=== PATIENT | female | born 1985 | race Caucasian/White ===

== ENCOUNTER 2019-12-20 15:50 | Emergency (ER) | payer MEDICARE, MEDICAID, SELFPAY ==
--- NOTE | 2019-12-20 16:05 | HMH.EDABDPAI ---
ED Disposition Clinical Impression: Menstrual cramp Constipation Qualifiers: Constipation type: slow transit constipation Qualified Code(s): K59.01 - Slow transit constipation Disposition: Home, Self-Care Condition on Discharge: Good Instructions: DI for Dysmenorrhea, DI for Constipation Referrals: PCPJuliana [Primary Care Provider] - 3 days - Critical Care Critical Care Time: No Attestation: On , the high probability of a clinically significant, sudden or life threatening deterioration of the following system(s) required my full and direct attention, intervention and personal management. The time I documented below is in addition to time spent performing reported procedures but includes the following listed in this critical care notation. Medical Decision Making - Medical Records Medical records reviewed: Yes: I reviewed the patient's medical records. - Moses Inquiry Pt receiving controlled substance: No Vital Signs: 12/20/19 16:08 12/20/19 16:20 Temperature 98.2 F Temperature Source Oral Pulse Rate [Right Brachial] 59 L 57 L Respiratory Rate 18 Blood Pressure [Right Arm] 112/72 112/72 Blood Pressure Mean [Right Arm] 85 85 Blood Pressure Source [Right Arm] Automatic Cuff Automatic Cuff Blood Pressure Position [Right Arm] Sitting Sitting 02 Sat by Pulse Oximetry 97 98 Oxygen Delivery Method Room Air Room Air - Lab Data Lab results reviewed: Yes: I reviewed the patient's lab results. Lab Results 12/20/19 16:01: Urine Color Yellow, Urine Appearance Clear, Urine pH 6.5, Ur Specific [place] 1.025, Urine Protein Negative, Urine Glucose (UA) Negative, Urine Ketones Negative, Urine Blood 3+, Urine Nitrate Negative, Urine Bilirubin Negative, Urine Urobilinogen 1.0, Ur Leukocyte Esterase Negative 12/20/19 16:01: Urine HCG, Qual Negative Orders (Tests/Meds): ED MEDICATIONS Discontinued Medications Generic Name Dose Route Start Last Admin Trade Name Freq PRN Reason Stop Dose Admin Ibuprofen 600 mg 12/20/19 16:26 Ibuprofen 600 Mg Tablet PO 12/20/19 16:27 ONCE ONE ORDERS Category Date Time Status Urinalysis and Microscopic Stat Lab 12/20/19 16:01 Results Medical Decision Narrative: Patient with left lower quadrant pain in association with onset of her menstrual cycle most consistent with menstrual cramps. She is slightly tender in the left lower quadrant. This is negative and test negative, thus no ectopic . She has known ovarian cyst disease, but does not have excruciating abdominal pain that would make me suspect ovarian torsion. Patient also expresses having constipation over the last several weeks and I recommended MiraLAX daily until she is having toothpaste consistency stools. This is likely also contributing to her abdominal pain. She has good bowel sounds in all 4 quadrants, unlikely bowel obstruction. No fever, diarrhea that would suggest diverticulitis. On reevaluation at [facility], patient states that she is feeling better and wants to leave. I have discussed returning for any worsening symptoms. Expresses understanding of the plan and is agreeable. Abdominal Pain HPI - General Stated Complaint: Severe left side lower abdominal pain Time Seen by Provider: 12/20/19 16:05 Mode of Arrival: Ambulatory Source of Information: Patient Limitations: No Limitations - History of Present Illness HPI narrative: This is a 34-year-old morbidly obese female with a past medical history significant for hyperlipidemia, seizure disorder who presents to the emergency department for evaluation of left lower quadrant abdominal pain that started this morning in association with vaginal bleeding. Pain radiates to her left lower back. She thinks she just started her menstrual cycle and her last period was 1 month ago. She denies any dysuria. She had one episode of emesis just prior to the emergency department. She has been constipated for several weeks with only
[2019-12-20 16:08] VITALS: BP 112/72; PULSE 59; RESP 18; TEMP 36.8; O2SAT 97; BMI 43.0
[2019-12-20 16:08] LABS: Microscopic, Urine URINE MICROSCOPIC (MICROSCOPIC)
[2019-12-20 16:13] LABS: Appearance,Urine CLEAR (Clear); Bilirubin,Urine Negative (Negative); Blood, Urine 3+ (Negative); Color,Urine YELLOW (Yellow); Glucose,Urine (UA) Negative (Negative); Ketones,Urine Negative (Negative); Leukocyte Esterase,Urine Negative (Negative); Nitrate,Urine Negative (Negative); PH,Urine 6.5 (5.0-8.5); Protein,Urine Negative (Negative); Specific Gravity, Urine 1.025 (1.005-1.030)
[2019-12-20 16:20] VITALS: BP 112/72; PULSE 57; O2SAT 98
[2019-12-20 16:25] LABS: Urine Pregnancy, HCG Qual. Negative (Negative)
[2019-12-20 16:45] VITALS: BP 112/76; PULSE 60; RESP 17; TEMP 36.8; O2SAT 97
[2019-12-20 17:23] LABS: WBC,Urine Occasional #/hpf (0-3)
== END 2019-12-20 16:52 | disposition home or self-care (01) ==
PROVIDERS: Emergency Provider Emergency Medicine
DX: N94.4 Primary dysmenorrhea (principal); K59.01 Slow transit constipation; Z88.0 Allergy status to penicillin; F17.210 Nicotine dependence, cigarettes, uncomplicated; Z79.899 Other long term (current) drug therapy
CPT/HCPCS: 81001; 81025; 99282

== ENCOUNTER 2020-01-03 20:17 | Emergency (ER) | payer MEDICARE, SELFPAY ==
[2020-01-03 20:17] VITALS: BP 132/78; PULSE 56; RESP 18; TEMP 37.3; O2SAT 83; BMI 48.4
--- NOTE | 2020-01-03 20:18 | PC.NURSE ---
Seizure pads in place
[2020-01-03 20:30] VITALS: BP 136/74; PULSE 50; RESP 18; O2SAT 100
--- NOTE | 2020-01-03 20:57 | CT_ITS ---
PROCEDURE: CT HEAD/BRAIN WO CON CLINICAL INDICATION: seizure Head injury with headache/pain, contusion, abrasion or hematoma, loss of memory COMPARISON: CT HEADWO CT head/brain wo con from 09/06/2017 TECHNIQUE: Axial images obtained. All CT scans at the facility use one or more dose reduction, viz: automated exposure control, ma/kV adjustment per patient size (including targeted exams where dose is matched to indication, i.e. head), or iterative reconstruction technique. FINDINGS: No midline shift, mass effect, intracranial hemorrhage, hydrocephalus, or extra-axial fluid collection is evident. The calvarium has an unremarkable appearance. No mastoid effusion. No sinus air-fluid level. IMPRESSION: No acute intracranial finding Dictated by: Deandre Machado MD 01/04/2020 05:25 Deandre Machado MD in [place] 01/04/2020 05:25
--- NOTE | 2020-01-03 20:58 | CT_ITS ---
PROCEDURE: CT CERVICAL SPINE WO CON CLINICAL INDICATION: seizure Neck injury with pain, contusion/abrasion or hematoma, cervical sprain/strain the COMPARISON: No exams were available for comparison TECHNIQUE: Axial images obtained with sagittal and coronal reformats. All CT scans at the facility use one or more dose reduction, viz: automated exposure control, ma/kV adjustment per patient size (including targeted exams where dose is matched to indication, i.e. head), or iterative reconstruction technique. Axial spiral CT scanning performed of the cervical spine beginning at the base of the skull and continuing to the upper T-spine. 3-D multiplanar reconstruction with 3-D manipulation of volumetric data set in image rendering was completed by the radiologist and/or technologist with the supervision of the radiologist on independent workstation. FINDINGS: There is straightening/reversal of the normal lordosis which may be due to patient positioning or muscle spasm.. Normal alignment. No acute fracture or dislocation. There is mild multilevel cervical spondylosis with mild degenerative disc disease at C5-C6 and C6-C7. Incidental note is made of mild prominence of the thyroid gland. Lung apices are clear. Scattered small nodes are present in the neck IMPRESSION: 1. No acute fracture. 2. Mild cervical spondylosis with reversal cervical lordosis. Dictated by: Deandre Machado MD 01/04/2020 05:27 Deandre Machado MD in [place] 01/04/2020 05:27
--- NOTE | 2020-01-03 20:58 | XR_ITS ---
PROCEDURE: XR CHEST AP CLINICAL HISTORY: seizure Possible fall COMPARISON: No exams were available for comparison FINDINGS: The cardiomediastinal silhouette and pulmonary vascularity are within normal limits. The lungs are clear without infiltrates, suspicious nodules, or pleural effusions. No acute bony abnormalities. IMPRESSION: No acute findings. Dictated by: Deandre Machado MD 01/04/2020 05:23 Deandre Machado MD in [place] 01/04/2020 05:23
[2020-01-03 21:00] VITALS: BP 116/69; PULSE 55; RESP 18; O2SAT 100
[2020-01-03 21:22] LABS: Microscopic, Urine URINE MICROSCOPIC (MICROSCOPIC)
--- NOTE | 2020-01-03 21:27 | HMH.EDSEIZ ---
ED Disposition Clinical Impression: Generalized seizure Obesity Qualifiers: Obesity type: due to excess calories Obesity classification: adult class 3 (BMI >= 40) Serious obesity comorbidity presence: with serious comorbidity Body mass index: BMI 45.0-49.9 Qualified Code(s): E66.01 - Morbid (severe) obesity due to excess calories Bedbug bite Qualifiers: Encounter type: initial encounter Qualified Code(s): W57.XXXA - Bitten or stung by nonvenomous insect and other nonvenomous arthropods, initial encounter Disposition: Home, Self-Care Condition on Discharge: Good Instructions: DI for Seizure Disorder -- Adult Additional Instructions: call neuro in am Referrals: PCP,No [Primary Care Provider] - - Critical Care Critical Care Time: No Attestation: On 01/03/20, the high probability of a clinically significant, sudden or life threatening deterioration of the following system(s) required my full and direct attention, intervention and personal management. The time I documented below is in addition to time spent performing reported procedures but includes the following listed in this critical care notation. Medical Decision Making - Medical Records Medical records reviewed: Yes: I reviewed the patient's medical records. - Moses Inquiry Pt receiving controlled substance: No Vital Signs: 01/03/20 20:17 01/03/20 20:30 01/03/20 21:00 Temperature 99.1 F Temperature Source Rectal Pulse Rate [Left Radial] 56 L 50 L 55 L Respiratory Rate 18 18 18 Blood Pressure [Right Arm] 132/78 136/74 116/69 Blood Pressure Mean [Right Arm] 96 94 84 Blood Pressure Source [Right Arm] Automatic Cuff Blood Pressure Position [Right Arm] Sitting 02 Sat by Pulse Oximetry 83 L 100 100 Oxygen Delivery Method Room Air 01/03/20 21:31 Temperature Temperature Source Pulse Rate [Left Radial] 50 L Respiratory Rate 18 Blood Pressure [Right Arm] 123/70 Blood Pressure Mean [Right Arm] 87 Blood Pressure Source [Right Arm] Blood Pressure Position [Right Arm] 02 Sat by Pulse Oximetry 98 Oxygen Delivery Method - Lab Data Lab results reviewed: Yes: I reviewed the patient's lab results. Lab Results 01/03/20 20:55: Urine Color Yellow, Urine Appearance Clear, Urine pH 7.0, Ur Specific [place] 1.010, Urine Protein Negative, Urine Glucose (UA) Negative, Urine Ketones Negative, Urine Blood Negative, Urine Nitrate Negative, Urine Bilirubin Negative, Urine Urobilinogen 0.2, Ur Leukocyte Esterase Negative, Urine WBC 3-5, Urine Bacteria Trace 01/03/20 20:55: Urine HCG, Qual Negative 01/03/20 20:55: Urine Opiates Screen Negative, Urine Methadone Screen Negative, Ur Barbituates Screen Negative, Ur Phencyclidine Scrn Negative, Ur Amphetamines Screen Negative, U Benzodiazepines Scrn Negative, Urine Cocaine Screen Negative, U Marijuana (THC) Screen Negative 01/03/20 21:15: Lactate 0.9 01/03/20 21:56: Specimen Source Left radial, O2 % Ra, ABG pH 7.44, ABG pCO2 39.1, ABG pO2 78.3 L, ABG HCO3 26.0, ABG Total CO2 27.2 H, ABG O2 Saturation 95, ABG Base Excess 1.8, Deandre Test Acceptable Orders (Tests/Meds): ED MEDICATIONS Generic Name Dose Route Start Last Admin Trade Name Freq PRN Reason Stop Dose Admin Sodium Chloride 1,000 mls @ 999 mls/hr 01/03/20 21:15 Sod Chlor 0.9% 1000ml Bag IV 01/03/20 22:15 .Q1H1M GEO Sodium Chloride 10 ml 01/03/20 21:02 Sodium Chloride 0.9% 10ml Vial IV 02/02/20 21:01 NEEDED PRN to Dilute Lorazepam inj Discontinued Medications Generic Name Dose Route Start Last Admin Trade Name Freq PRN Reason Stop Dose Admin Lorazepam 1 mg 01/03/20 21:02 01/03/20 20:35 Lorazepam 2mg/Ml Vial IV 01/03/20 21:03 1 mg ONCE ONE Administration ORDERS Category Date Time Status CT cervical spine wo con Stat Cat Scan 01/03/20 20:[address] head/brain wo con Stat Cat Scan 01/03/20 20:57 Taken XR chest AP Stat Exams 01/03/20 20:58 Taken CMP [Comprehensive Metabolic Panel] Sta
[2020-01-03 21:30] LABS: Lactic Acid 0.9 mmol/L (0.7-2.1)
[2020-01-03 21:31] VITALS: BP 123/70; PULSE 50; RESP 18; O2SAT 98
--- NOTE | 2020-01-03 21:32 | PC.NURSE ---
called respiratory for abg order
[2020-01-03 21:33] LABS: Appearance,Urine CLEAR (Clear); Bilirubin,Urine Negative (Negative); Blood, Urine Negative (Negative); Color,Urine YELLOW (Yellow); Glucose,Urine (UA) Negative (Negative); Ketones,Urine Negative (Negative); Leukocyte Esterase,Urine Negative (Negative); Nitrate,Urine Negative (Negative); Protein,Urine Negative (Negative); Urobilinogen,Urine 0.2 EU/dl (0.2)
[2020-01-03 21:40] LABS: Urine Pregnancy, HCG Qual. Negative (Negative)
[2020-01-03 21:46] LABS: Benzodiazepines Screen,Urine Negative ng/ml (<200)
[2020-01-03 21:47] LABS: Amphetamine/Metha Screen,Urine Negative ng/ml (<1000)
[2020-01-03 21:48] LABS: Opiate Screen,Urine Negative ng/ml (<300)
[2020-01-03 21:49] LABS: Phencyclidine Screen,Urine Negative ng/ml (<25)
[2020-01-03 21:50] LABS: Cannabinoid Screen,Urine Negative ng/ml (<50)
[2020-01-03 21:51] LABS: Cocaine Screen,Urine Negative ng/ml (<300)
--- NOTE | 2020-01-03 21:53 | PC.NURSE ---
pt to RAD
[2020-01-03 21:54] LABS: Barbiturates Screen,Urine Negative ng/ml (<200); Methadone Screen,Urine Negative ng/ml (<300)
[2020-01-03 21:59] LABS: ABG Base Excess 1.8 mmol/L (-2.4-2.3); ABG Oxygen Saturation 95 % (90-100); ABG PCO2 39.1 mmhg (35.0-45.0); ABG PH 7.44 mmol/L (7.35-7.45); ABG PO2 78.3 mmhg (80-100); ABG TCO2 27.2 mmhg (23-27)
[2020-01-03 22:00] LABS: Allen's Test Acceptable; Oxygen RA %
[2020-01-03 22:01] LABS: Source Left Radial
[2020-01-03 22:17] LABS: Bacteria,Urine Trace /lpf
[2020-01-03 22:40] LABS: Basophils % 0.3 % (0.1-2.0); Eosinophils # 0.1 K/mm3 (0.0-0.4); Eosinophils % 1.5 % (0.1-12.0); Hematocrit 43.5 % (37.0-47.0); Hemoglobin 13.9 g/dL (12.2-16.2); Mean Corpuscular Hemoglobin 30.1 pg (27.0-31.2); Mean Corpuscular Volume 94.2 fl (81-99); Mean Platelet Volume 9.6 fl (7.4-10.4); Monocytes # 0.4 K/mm3 (0.1-1.0); Monocytes % 5.3 % (1.7-9.3); Neutrophils # 5.8 K/mm3 (1.8-7.8); Neutrophils % 68.8 % (37.0-80.0); Platelet Count 270 K/mm3 (142-424); Red Blood Count 4.62 M/mm3 (4.20-5.40); Red Cell Distribution Width 13.2 % (11.5-17.5); White Blood Count 8.4 K/mm3 (4.8-10.8)
[2020-01-03 22:43] LABS: Chloride 103 mmol/L (98-107)
[2020-01-03 22:44] LABS: Potassium 4.1 mmoL/L (3.5-5.1); Sodium 137 mmol/L (136-145)
[2020-01-03 22:46] LABS: Blood Urea Nitrogen 8 mg/dl (7-17); Creatinine Clearance Estimated 106 mL/min (50-200); Estimated Glomerular Filt Rate 96 ml/min (>60); GFR (African American) 116 ML/MIN (>60)
[2020-01-03 22:47] LABS: Alanine Aminotransferase 14 U/L (12-78); Albumin/Globulin Ratio 1.4 (1.1-1.8); Alkaline Phosphatase 57 U/L (38-126); Anion Gap 10.1 mEq/L (5-15); Aspartate Amino Transferase 27 U/L (14-36); Bilirubin,Total 0.4 mg/dl (0.2-1.3); Carbon Dioxide 28 mmol/L (22.0-30.0); Globulin 2.8 g/dL (1.3-3.2); Glucose 87 mg/dl (74-100); Total Protein,Serum 6.8 g/dl (6.3-8.2)
--- NOTE | 2020-01-03 23:26 | PC.NURSE ---
this nurse went to DC pt urinary catheter and catheter wasnt present. this nurse asked what happened to the catheter and the pt stated she pulled it out herself. this nurse explained to the pt that pulling out that catheter can cause trauma to the urethra.
[2020-01-03 23:37] VITALS: BP 117/71; PULSE 61; RESP 16; TEMP 36.9; O2SAT 97
[2020-01-09 15:21] LABS: Levetiracetam (Keppra) 36.5 ug/mL (10.0-40.0)
== END 2020-01-03 23:43 | disposition home or self-care (01) ==
PROVIDERS: Emergency Provider Emergency Medicine
DX: G40.804 Other epilepsy, intractable, without status epilepticus (principal); E66.01 Morbid (severe) obesity due to excess calories; Z68.42 Body mass index [BMI] 45.0-49.9, adult; T14.8XXA Other injury of unspecified body region, initial encounter; W57.XXXA Bitten or stung by nonvenomous insect and other nonvenomous arthropods, initial encounter; F17.210 Nicotine dependence, cigarettes, uncomplicated; Z88.0 Allergy status to penicillin; Z79.899 Other long term (current) drug therapy
CPT/HCPCS: 36415; 70450; 71045; 72125; 80053; 80177; 80305; 81001; 81025; 82803; 83605; 85025; 87040; 96374; 99284

== ENCOUNTER 2020-01-08 20:56 | Emergency (ER) | payer MEDICARE, SELFPAY ==
[2020-01-08 20:49] VITALS: BP 133/68; PULSE 84; RESP 16; TEMP 36.7; O2SAT 98; BMI 44.3
[2020-01-08 20:56] VITALS: BMI 44.3
[2020-01-08 21:30] VITALS: BP 119/63; PULSE 54; RESP 17; O2SAT 98
[2020-01-08 21:35] LABS: Chloride 104 mmol/L (98-107)
[2020-01-08 21:36] LABS: Basophils % 0.3 % (0.1-2.0); Eosinophils # 0.2 K/mm3 (0.0-0.4); Eosinophils % 1.7 % (0.1-12.0); Hematocrit 46.6 % (37.0-47.0); Hemoglobin 15.2 g/dL (12.2-16.2); Lymphocytes # 2.6 K/mm3 (0.7-4.5); Lymphocytes % 25.9 % (10-50); Mean Corpuscular HGB Conc 32.6 g/dL (31.8-35.4); Mean Corpuscular Hemoglobin 30.8 pg (27.0-31.2); Mean Corpuscular Volume 94.6 fl (81-99); Mean Platelet Volume 8.8 fl (7.4-10.4); Monocytes # 0.5 K/mm3 (0.1-1.0); Monocytes % 4.9 % (1.7-9.3); Neutrophils # 6.9 K/mm3 (1.8-7.8); Neutrophils % 67.3 % (37.0-80.0); Platelet Count 294 K/mm3 (142-424); Potassium 4.9 mmoL/L (3.5-5.1); Red Blood Count 4.93 M/mm3 (4.20-5.40); Red Cell Distribution Width 13.8 % (11.5-17.5); Sodium 142 mmol/L (136-145); White Blood Count 10.2 K/mm3 (4.8-10.8)
[2020-01-08 21:38] LABS: Alanine Aminotransferase 15 U/L (12-78); Alkaline Phosphatase 50 U/L (38-126); Aspartate Amino Transferase 24 U/L (14-36); Bilirubin,Total 0.3 mg/dl (0.2-1.3); Blood Urea Nitrogen 11 mg/dl (7-17); Creatinine Clearance Estimated 92 mL/min (50-200); Estimated Glomerular Filt Rate 72 ml/min (>60); GFR (African American) 87 ML/MIN (>60)
[2020-01-08 21:39] LABS: Albumin Level 4.4 g/dl (3.5-5.0); Albumin/Globulin Ratio 1.5 (1.1-1.8); Anion Gap 11.9 mEq/L (5-15); Calcium 9.4 mg/dl (8.4-10.2); Carbon Dioxide 31 mmol/L (22.0-30.0); Glucose 98 mg/dl (74-100); Total Protein,Serum 7.4 g/dl (6.3-8.2)
[2020-01-08 21:40] LABS: Lactic Acid 3.4 mmol/L (0.7-2.1)
[2020-01-08 22:00] VITALS: BP 134/74; PULSE 53; RESP 17; O2SAT 99
--- NOTE | 2020-01-08 22:13 | HMH.EDSEIZ ---
ED Disposition Clinical Impression: Epileptic seizure Qualifiers: Epilepsy type: unspecified Intractability: not intractable Status epilepticus: without status epilepticus Qualified Code(s): G40.909 - Epilepsy, unspecified, not intractable, without status epilepticus Disposition: Home, Self-Care Condition on Discharge: Good Instructions: DI for Seizure Disorder -- Adult Additional Instructions: see pcp at wednesday at 200 pm Referrals: PCP,No [Primary Care Provider] - - Critical Care Critical Care Time: No Attestation: On 01/08/20, the high probability of a clinically significant, sudden or life threatening deterioration of the following system(s) required my full and direct attention, intervention and personal management. The time I documented below is in addition to time spent performing reported procedures but includes the following listed in this critical care notation. Medical Decision Making - Medical Records Medical records reviewed: Yes: I reviewed the patient's medical records. - Moses Inquiry Pt receiving controlled substance: No Vital Signs: 01/08/20 20:49 Temperature 98.1 F Temperature Source Oral Pulse Rate [Left Radial] 84 Respiratory Rate 16 Blood Pressure [Right Arm] 133/68 Blood Pressure Mean [Right Arm] 89 Blood Pressure Source [Right Arm] Automatic Cuff Blood Pressure Position [Right Arm] Sitting 02 Sat by Pulse Oximetry 98 Oxygen Delivery Method Room Air - Lab Data Lab results reviewed: Yes: I reviewed the patient's lab results. Lab Results 01/08/20 21:20: WBC 10.2, RBC 4.93, Hgb 15.2, Hct 46.6, MCV 94.6, MCH 30.8, MCHC 32.6, RDW 13.8, Plt Count 294, MPV 8.8, Neut % (Auto) 67.3, Lymph % (Auto) 25.9, [place] % (Auto) 4.9, Eos % (Auto) 1.7, Baso % (Auto) 0.3, Neut # (Auto) 6.9, Lymph # (Auto) 2.6, [place] # (Auto) 0.5, Eos # (Auto) 0.2, Baso # (Auto) 0.0 01/08/20 21:20: Sodium 142, Potassium 4.9, Chloride 104, Carbon Dioxide 31 H, Anion Gap 11.9, BUN 11, Creatinine 0.90, Estimated Creat Clear 92, Estimated GFR 72, Est GFR ( Amer) 87, Glucose 98, Calcium 9.4, Total Bilirubin 0.3, AST 24, ALT 15, Alkaline Phosphatase 50, Total Protein 7.4, Albumin 4.4, Globulin 3.0, Albumin/Globulin Ratio 1.5 01/08/20 21:20: Lactate 3.4 H Result diagrams: 01/08/20 21:20 01/08/20 21:20 Orders (Tests/Meds): ORDERS Category Date Time Status Levetiracetam (Keppra) Stat Lab 01/08/20 21:20 Received Blood Culture Stat Micro 01/08/20 21:20 Received - Reevaluation(s) Time: 22:23 Reevaluation #1: awake and alert Seizures HPI - General Chief Complaint: Seizure Stated Complaint: seizures Time Seen by Provider: 01/08/20 21:00 Mode of Arrival: EMS Source of Information: Patient, EMS, Medical Record Limitations: No Limitations Description of Symptoms (Recalled from ER Triage Doc. by RN): pt brought in by EMS. pt reported having multiple seizures today. pt was alert and oriented on assessment. pt reported running out of her keppra this week. - History of Present Illness MD complaint: seizure Onset (ago): day(s) - Related Data Home Medications Medication Instructions Recorded Confirmed Lovastatin [Altoprev] 20 mg PO DAILY 12/20/18 12/20/18 Phenytoin Sodium Extended 100 mg PO TID 12/20/18 12/20/18 [Dilantin 100mg Capsule] Sertraline HCl [Zoloft] 25 mg PO DAILY 12/20/18 12/20/18 Allergies Allergy/AdvReac Type Severity Reaction Status Date / Time Penicillins [PENICILLINS] Allergy Intermediate I-HIVES Verified 01/03/20 21:29 ANESTHESIA Allergy Intermediate S-SWELLS-OR Uncoded 02/09/17 14:46 AL/THROAT [facility] History - Hepatitis A Screen Drug use history?: No High risk sexual behaviors?: No History of sexually transmitted infection?: No Currently employed?: No Childcare worker?: No Do you have indoor plumbing?: Yes Do you have electricity?: Yes Attestation statement:: This patient has been screened for Hepatitis A risk factors. I have reviewed the patient's
[2020-01-08 22:30] VITALS: BP 127/70; PULSE 51; RESP 17; O2SAT 98
[2020-01-08 22:45] VITALS: BP 120/70; PULSE 90; RESP 18; TEMP 36.9
--- NOTE | 2020-01-08 23:17 | PC.NURSE ---
spoke with Hansel from pharmacy for loading keppra dose. Hansel recommended 2g PO dose of keppra. MD ordered to give 1G because pt informed him she had taken 1G today already. pt instructed to return to PCP office tomorrow at 2pm for follow up appt.
[2020-01-12 09:00] LABS: Levetiracetam (Keppra) 22.9 ug/mL (10.0-40.0)
== END 2020-01-08 22:55 | disposition home or self-care (01) ==
PROVIDERS: Emergency Provider Emergency Medicine
DX: G40.909 Epilepsy, unspecified, not intractable, without status epilepticus (principal); Z88.0 Allergy status to penicillin; F17.210 Nicotine dependence, cigarettes, uncomplicated; Z79.899 Other long term (current) drug therapy
CPT/HCPCS: 36415; 80053; 80177; 83605; 85025; 87040; 99283

== ENCOUNTER 2020-01-21 23:54 | Emergency (ER) | payer MEDICARE, SELFPAY ==
[2020-01-21 23:54] VITALS: BP 132/69; PULSE 60; RESP 16; TEMP 36.8; O2SAT 99; BMI 42.6
--- NOTE | 2020-01-22 00:08 | ECG_ITS ---
APPROVED REPORT Exam: Resting ECG HR:54 bpm ECG Measurements Heart Rate 54 AXES TX 134 P 77 QRSd 88 QRS 63 QT 456 T 42 QTc 432 Conclusion Sinus bradycardia Otherwise normal ECG Electronically signed by : Shay Morris, 01/22/2020 07:18:06
--- NOTE | 2020-01-22 00:08 | XR_ITS ---
PROCEDURE: XR CHEST 2V CLINICAL HISTORY: Chest pain COMPARISON: CR XR CHEST AP from 01/03/2020 FINDINGS: The cardiomediastinal silhouette and pulmonary vascularity are within normal limits. The lungs are clear without infiltrates, suspicious nodules, or pleural effusions. No acute bony abnormalities. IMPRESSION: No acute findings. Dictated by: Deandre Machado MD 01/22/2020 07:05 Deandre Machado MD in [place] 01/22/2020 07:05
[2020-01-22 00:24] VITALS: BP 113/88; PULSE 65; RESP 16; O2SAT 98
[2020-01-22 00:26] LABS: Chloride 104 mmol/L (98-107); Potassium 3.9 mmoL/L (3.5-5.1); Sodium 140 mmol/L (136-145)
[2020-01-22 00:28] LABS: Basophils % 0.4 % (0.1-2.0); Eosinophils # 0.2 K/mm3 (0.0-0.4); Eosinophils % 2.2 % (0.1-12.0); Hematocrit 43.2 % (37.0-47.0); Hemoglobin 14.1 g/dL (12.2-16.2); Lymphocytes % 31.3 % (10-50); Mean Corpuscular HGB Conc 32.7 g/dL (31.8-35.4); Mean Corpuscular Hemoglobin 30.5 pg (27.0-31.2); Mean Corpuscular Volume 93.3 fl (81-99); Mean Platelet Volume 8.9 fl (7.4-10.4); Monocytes # 0.4 K/mm3 (0.1-1.0); Monocytes % 4.2 % (1.7-9.3); Neutrophils % 61.9 % (37.0-80.0); Platelet Count 322 K/mm3 (142-424); Red Blood Count 4.63 M/mm3 (4.20-5.40); Red Cell Distribution Width 13.8 % (11.5-17.5); White Blood Count 9.7 K/mm3 (4.8-10.8)
[2020-01-22 00:29] LABS: Alanine Aminotransferase 16 U/L (12-78); Albumin Level 4.4 g/dl (3.5-5.0); Alkaline Phosphatase 59 U/L (38-126); Anion Gap 9.9 mEq/L (5-15); Aspartate Amino Transferase 34 U/L (14-36); Bilirubin,Direct 0.2 mg/dl (0.0-0.4); Bilirubin,Indirect 0.1 mg/dL (0.0-0.9); Bilirubin,Total 0.3 mg/dl (0.2-1.3); Bilirubin,Unconjugated 0.1 mg/dL (0.0-1.1); Blood Urea Nitrogen 19 mg/dl (7-17); Calcium 9.3 mg/dl (8.4-10.2); Carbon Dioxide 30 mmol/L (22.0-30.0); Creatinine Clearance Estimated 93 mL/min (50-200); Estimated Glomerular Filt Rate 82 ml/min (>60); GFR (African American) 99 ML/MIN (>60); Glucose 83 mg/dl (74-100); Total Protein,Serum 7.6 g/dl (6.3-8.2)
[2020-01-22 00:44] LABS: Troponin I < 0.01 ng/ml (0.00-0.034)
--- NOTE | 2020-01-22 01:16 | HMH.EDCP ---
ED Disposition Clinical Impression: Atypical chest pain Disposition: Home, Self-Care Condition on Discharge: Good Instructions: DI for Atypical Chest Pain Additional Instructions: call pcp for follow and see dr juarez this week Referrals: PCP,No [Primary Care Provider] - - Critical Care Critical Care Time: No Attestation: On 01/21/20, the high probability of a clinically significant, sudden or life threatening deterioration of the following system(s) required my full and direct attention, intervention and personal management. The time I documented below is in addition to time spent performing reported procedures but includes the following listed in this critical care notation. Medical Decision Making - Medical Records Medical records reviewed: Yes: I reviewed the patient's medical records. - Moses Inquiry Pt receiving controlled substance: No Vital Signs: 01/21/20 23:54 Temperature 98.3 F Temperature Source Oral Pulse Rate [Left Radial] 60 Respiratory Rate 16 Blood Pressure [Right Arm] 132/69 Blood Pressure Mean [Right Arm] 90 Blood Pressure Source [Right Arm] Automatic Cuff Blood Pressure Position [Right Arm] Supine 02 Sat by Pulse Oximetry 99 Oxygen Delivery Method Room Air - Lab Data Lab results reviewed: Yes: I reviewed the patient's lab results. Lab Results 01/22/20 00:01: WBC 9.7, RBC 4.63, Hgb 14.1, Hct 43.2, MCV 93.3, MCH 30.5, MCHC 32.7, RDW 13.8, Plt Count 322, MPV 8.9, Neut % (Auto) 61.9, Lymph % (Auto) 31.3, [place] % (Auto) 4.2, Eos % (Auto) 2.2, Baso % (Auto) 0.4, Neut # (Auto) 6.0, Lymph # (Auto) 3.0, [place] # (Auto) 0.4, Eos # (Auto) 0.2, Baso # (Auto) 0.0 01/22/20 00:01: Sodium 140, Potassium 3.9, Chloride 104, Carbon Dioxide 30, Anion Gap 9.9, BUN 19 H, Creatinine 0.80, Estimated Creat Clear 93, Estimated GFR 82, Est GFR ( Amer) 99, Glucose 83, Calcium 9.3, Total Bilirubin 0.3, Direct Bilirubin 0.2, Conjugated Bilirubin 0.0, Indirect Bilirubin 0.1, Unconjugated Bilirubin 0.1, AST 34, ALT 16, Alkaline Phosphatase 59, Troponin I < 0.01, Total Protein 7.6, Albumin 4.4 01/22/20 01:15: Urine Color Yellow, Urine Appearance Clear, Urine pH 6.0, Ur Specific [place] >= 1.030, Urine Protein Negative, Urine Glucose (UA) Negative, Urine Ketones Negative, Urine Blood 1+, Urine Nitrate Negative, Urine Bilirubin Negative, Urine Urobilinogen 0.2, Ur Leukocyte Esterase Negative, Urine RBC 3-5, Ur Squamous Epith Cells 5-10, Amorphous Sediment Trace 01/22/20 01:15: Urine HCG, Qual Negative Result diagrams: 01/22/20 00:01 01/22/20 00:01 Orders (Tests/Meds): ED MEDICATIONS Discontinued Medications Generic Name Dose Route Start Last Admin Trade Name Freq PRN Reason Stop Dose Admin Aspirin 324 mg 01/22/20 00:08 01/22/20 00:35 Aspirin 81mg Chewable Tablet PO 01/22/20 00:09 324 mg ONCE ONE Administration ORDERS Category Date Time Status XR chest 2V Stat Exams 01/22/20 00:08 Taken Troponin I Q3H Lab 01/22/20 03:15 Ordered Troponin I Q3H Lab 01/22/20 06:15 Ordered - Radiology Data #1 Image(s): Chest Image Reviewed: Yes I reviewed the patient's radiology image Preliminary Findings: Normal/NAD - ECG Data Tracing #1 Normal Sinus Rhythm: Yes Ischemic changes: non-specific ST-T wave changes Chest Pain HPI - General Chief Complaint: Chest Pain Stated Complaint: Chest pain Time Seen by Provider: 01/22/20 00:10 Mode of Arrival: Ambulatory Source of Information: Patient, Significant Other, Medical Record Limitations: No Limitations Description of Symptoms (Recalled from ER Triage Doc. by RN): Pt c/o chest pain that radiates to her left arm. She also repots N/V today. Denies SOA, cough, sore throat, dizziness. - History of Present Illness HPI narrative: pt with acute onset of sharp lt sided chest pain MD complaint: chest pain indicative of cardiac Onset (ago): hour(s) Duration: now resolved Activity at onset: during rest Pain location: left ches
[2020-01-22 01:26] LABS: Microscopic, Urine URINE MICROSCOPIC (MICROSCOPIC)
[2020-01-22 01:30] VITALS: BP 124/78; PULSE 58; RESP 16; O2SAT 99
[2020-01-22 01:31] LABS: Appearance,Urine CLEAR (Clear); Bilirubin,Urine Negative (Negative); Blood, Urine 1+ (Negative); Color,Urine YELLOW (Yellow); Glucose,Urine (UA) Negative (Negative); Ketones,Urine Negative (Negative); Leukocyte Esterase,Urine Negative (Negative); Nitrate,Urine Negative (Negative); Protein,Urine Negative (Negative); Specific Gravity, Urine >= 1.030 (1.005-1.030); Urobilinogen,Urine 0.2 EU/dl (0.2)
[2020-01-22 01:33] LABS: Urine Pregnancy, HCG Qual. Negative (Negative)
[2020-01-22 01:34] LABS: Amorphous Sediment,Urine Trace /lpf
[2020-01-22 02:23] VITALS: BP 131/75; PULSE 62; RESP 16; TEMP 36.6; O2SAT 99
== END 2020-01-22 02:24 | disposition home or self-care (01) ==
PROVIDERS: Emergency Provider Emergency Medicine
DX: R07.89 Other chest pain (principal); Z88.0 Allergy status to penicillin; F17.210 Nicotine dependence, cigarettes, uncomplicated; Z79.899 Other long term (current) drug therapy
CPT/HCPCS: 71046; 80048; 80076; 81001; 81025; 84484; 85025; 93005; 99283

== ENCOUNTER → 2020-01-29 10:33 | Outpatient (CLI) | payer MEDICARE, SELFPAY ==
[2020-01-29 12:59] LABS: Phenytoin (Dilantin) 3.5 ug/ml (10-20)
== END ==
PROVIDERS: Visit Provider Specialist
DX: G40.909 Epilepsy, unspecified, not intractable, without status epilepticus (principal)
CPT/HCPCS: 36415; 80185

== ENCOUNTER 2020-01-31 18:40 | Emergency (ER) | payer MEDICARE, SELFPAY ==
[2020-01-31] VITALS (8 sets, daily range): BP systolic 110–132; BP diastolic 52–92; PULSE 53–61; RESP 15–17; TEMP 36.7–36.8; O2SAT 95–100; BMI 44.6
--- NOTE | 2020-01-31 18:42 | PC.NURSE ---
seizure pads placed on bed.
--- NOTE | 2020-01-31 19:20 | HMH.EDGENADL ---
ED Disposition Clinical Impression: Seizure Disposition: Home, Self-Care Condition on Discharge: Good Instructions: DI for Seizure Disorder -- Adult, DI for Seizure (Not Epilepsy/Seizure Disorder), DI for Seizure Disorder -- Child Additional Instructions: Take antiepileptic medications as prescribed, do not miss any doses. Follow-up with primary care provider. Referrals: PCP,No [Primary Care Provider] - - Critical Care Critical Care Time: No Attestation: On 01/31/20, the high probability of a clinically significant, sudden or life threatening deterioration of the following system(s) required my full and direct attention, intervention and personal management. The time I documented below is in addition to time spent performing reported procedures but includes the following listed in this critical care notation. Medical Decision Making - Medical Records Medical records reviewed: Yes: I reviewed the patient's medical records. - Moses Inquiry Pt receiving controlled substance: No Vital Signs: 01/31/20 18:41 Temperature 98.3 F Temperature Source Oral Pulse Rate [Right Radial] 60 Respiratory Rate 16 Blood Pressure [Right Arm] 115/69 Blood Pressure Mean [Right Arm] 84 Blood Pressure Source [Right Arm] Automatic Cuff Blood Pressure Position [Right Arm] Sitting 02 Sat by Pulse Oximetry 97 Oxygen Delivery Method Room Air - Lab Data Lab Results 01/31/20 19:40: WBC 8.9, RBC 4.00 L, Hgb 12.3, Hct 37.7, MCV 94.1, MCH 30.8, MCHC 32.7, RDW 14.2, Plt Count 383, MPV 8.7, Neut % (Auto) 68.2, Lymph % (Auto) 25.2, [place] % (Auto) 4.3, Eos % (Auto) 1.8, Baso % (Auto) 0.5, Neut # (Auto) 6.1, Lymph # (Auto) 2.3, [place] # (Auto) 0.4, Eos # (Auto) 0.2, Baso # (Auto) 0.0 Result diagrams: 01/31/20 19:40 Orders (Tests/Meds): ED MEDICATIONS Generic Name Dose Route Start Last Admin Trade Name Freq PRN Reason Stop Dose Admin Lactated Ringer's 1,000 mls @ 999 mls/hr 01/31/20 19:30 Lactated Ringer's 1000 Ml Bag IV 01/31/20 20:30 .Q1H1M GEO Discontinued Medications Generic Name Dose Route Start Last Admin Trade Name Alycia PRN Reason Stop Dose Admin Levetiracetam 2,000 mg/ Sodium 120 mls @ 240 mls/hr 01/31/20 19:17 01/31/20 20:15 Chloride IV 01/31/20 19:18 240 mls/hr ONCE ONE Administration Ondansetron HCl 4 mg 01/31/20 19:18 01/31/20 20:16 Ondansetron 4mg/2ml Vial IV 01/31/20 19:19 4 mg ONCE ONE Administration Phenytoin Sodium 100 mg 01/31/20 19:17 01/31/20 20:16 Phenytoin 100mg Capsule PO 01/31/20 19:18 100 mg ONCE ONE Administration ORDERS Category Date Time Status CMP [Comprehensive Metabolic Panel] Stat Lab 01/31/20 19:40 Received Medical Decision Narrative: 34-year-old female with history of epilepsy who presents emergency department following a seizure. Patient has a known history for which she takes Keppra and Dilantin. Missed morning dose of both medications today. Awake alert and oriented x4 on arrival with GCS of 15. Seizure likely provoked by medication noncompliance. Obtain basic labs: CBC, CMP, and urinalysis. Provided patient with 1 L bolus of lactated Ringer's. Provided patient with bolus of IV Keppra along with oral Dilantin. Disposition pending results and reassessment. Upon reassessment, patient maintained mental status and had no further seizure activity in emergency department. Labs within normal limits with no significant electrolyte abnormalities requiring correction. Advised on strict return precautions the importance of follow-up with PCP and neurologist. Safe to discharge at this time. General Adult HPI - General Chief complaint: Seizure Stated complaint: seizure Time Seen by Provider: 01/31/20 19:05 Mode of Arrival: EMS Limitations: No Limitations Description of Symptoms (Recalled from ER Triage Doc. by RN): Per EMS report pt family ems r/t pt having a seizure. Pt is alert, oriented x3, tired acting in nature. Pt reports
[2020-01-31 20:07] LABS: Basophils % 0.5 % (0.1-2.0); Eosinophils # 0.2 K/mm3 (0.0-0.4); Eosinophils % 1.8 % (0.1-12.0); Hematocrit 37.7 % (37.0-47.0); Hemoglobin 12.3 g/dL (12.2-16.2); Lymphocytes # 2.3 K/mm3 (0.7-4.5); Lymphocytes % 25.2 % (10-50); Mean Corpuscular HGB Conc 32.7 g/dL (31.8-35.4); Mean Corpuscular Hemoglobin 30.8 pg (27.0-31.2); Mean Corpuscular Volume 94.1 fl (81-99); Mean Platelet Volume 8.7 fl (7.4-10.4); Monocytes # 0.4 K/mm3 (0.1-1.0); Monocytes % 4.3 % (1.7-9.3); Neutrophils # 6.1 K/mm3 (1.8-7.8); Neutrophils % 68.2 % (37.0-80.0); Platelet Count 383 K/mm3 (142-424); Red Cell Distribution Width 14.2 % (11.5-17.5); White Blood Count 8.9 K/mm3 (4.8-10.8)
[2020-01-31 20:35] LABS: Chloride 104 mmol/L (98-107)
[2020-01-31 20:36] LABS: Potassium 4.3 mmoL/L (3.5-5.1); Sodium 139 mmol/L (136-145)
[2020-01-31 20:38] LABS: Alanine Aminotransferase 17 U/L (12-78); Alkaline Phosphatase 77 U/L (38-126); Aspartate Amino Transferase 28 U/L (14-36); Bilirubin,Total 0.3 mg/dl (0.2-1.3); Blood Urea Nitrogen 12 mg/dl (7-17); Creatinine Clearance Estimated 93 mL/min (50-200); Estimated Glomerular Filt Rate 82 ml/min (>60); GFR (African American) 99 ML/MIN (>60)
[2020-01-31 20:39] LABS: Albumin Level 3.9 g/dl (3.5-5.0); Albumin/Globulin Ratio 1.2 (1.1-1.8); Anion Gap 10.3 mEq/L (5-15); Carbon Dioxide 29 mmol/L (22.0-30.0); Globulin 3.2 g/dL (1.3-3.2); Glucose 87 mg/dl (74-100); Total Protein,Serum 7.1 g/dl (6.3-8.2)
== END 2020-01-31 21:56 | disposition home or self-care (01) ==
PROVIDERS: Emergency Provider Emergency Medicine
DX: G40.909 Epilepsy, unspecified, not intractable, without status epilepticus (principal); F41.8 Other specified anxiety disorders; E78.5 Hyperlipidemia, unspecified; I10 Essential (primary) hypertension; F17.210 Nicotine dependence, cigarettes, uncomplicated; Z79.899 Other long term (current) drug therapy
CPT/HCPCS: 80053; 85025; 96367; 96375; 99283; J1953; J2405

== ENCOUNTER → 2020-02-01 06:38 | Outpatient (CLI) | payer MEDICARE, SELFPAY ==
--- NOTE | 2020-02-01 | CA_ITS ---
APPROVED REPORT Exam: Pharmacologic Technologist: Martha Owens, Ht: 5 ft 6 in Wt: 277 lbs BSA: 2.30 m2 HR: 60 bpm BP: 103/64 mmHg Rhythm: SINUS KARLA, LOW VOLTAGE QRS Medical History Medical History: Hyperlipidemia, Smoking Medications: Phenytoin,,,,, Lovastatin,,,,, Benztropine,,,,, Fluoxetine,,,,, Sertraline,,,,, RIsperidone,,,,, Aripiprazole,,,,, Allergies: No known drug allergies Cardiac Risk Factors: Hyperlipidemia Stress Test Details Test: LEXISCAN Reason for pharmacologic stress test: physical limitation. HR Resting HR: 62 bpm Max Heart Rate (APMHR): 186 bpm Max HR Achieved: 89 bpm Target HR (85% APMHR): 158 bpm % of APMHR: 47 Recovery HR: 71 bpm BP Resting BP: 103/54 mmHg Max BP: 120/63 mmHg Recovery BP: 99.0/57.0 mmHg ECG Resting ECG: SINUS KARLA, LOW VOLTAGE QRS Clinical Exercise duration: 04:04 min Highest Stage Achieved: Exercise capacity: 1.0 METs Stress ECG Conclusion DURING INFUSION PATIENT HAD MILD SOA AND NAUSEA. NO CP. NO ARRHYTHMIAS. NO SIGNIFICANT ST-T CHANGES. UNREMARKABLE LEXISCAN STRESS. MYOVIEW IMAGES REPORTED SEPARATELY. Electronically signed by : Heath Rice, 02/01/2020 12:00:03
--- NOTE | 2020-02-01 06:38 | NM_ITS ---
APPROVED REPORT Exam: Nuclear Stress Test Indication: CHEST PAIN..FATIGUE Patient Location: Outpatient Stress Tech: Dee Dee Montesnkson NM Tech:JOVANNY Quiros RT(R)(N) Ht: 5 ft 6 in Wt: 277 lbs Bra Size: 44DD HR: 60 bpm BP: 103/64 mmHg BSA: 2.30 m2 BMI: 44.7 History: CHEST PAIN..FATIGUE Procedure: Patient received a 0.4 mg of intravenous Lexiscan, resting heart rate 60 bpm, resting blood pressure 103/64 mmHg, with Lexiscan maximum heart rate achived was 81 bpm which is Less than 85 % of the maximum predicted heart rate and blood pressure was 120/63 mmHg. With Lexiscan, patient denied any complaint of chest pain. Electrocardiogram Resting electrocardiogram showed sinus rhythm, with Lexiscan there is less than 1.[address] segment depression noted from the baseline EKG. The EKG portion of the Lexiscan is nondiagnostic. Cardiac Stress and Resting SPECT Images: Cardiac Stress and Resting SPECT images were obtained using technetium 99m Myoview 30.5 mCi stress and 9.77 mCi at rest. Gated SPECT for analysis of segmental wall motion and calculation of the ejection fraction also done. Prone images were also obtained. Cardiac stress and resting SPECT images show uniform myocardial activity without segmental perfusion abnormality, computer derived ejection fraction is 62% with no regional wall motion abnormality, right ventricle is normal size and contractility. Conclusion: 1. The EKG portion of the Lexiscan is nondiagnostic. 2. No scintigraphic evidence of reversible ischemia seen, computer derived ejection fraction is 62% with no regional wall motion abnormality, right ventricle is normal size and contractility. 3. Normal Lexiscan Myoview study. Electronically signed by : Heath Rice, 02/01/2020 12:07:31
--- NOTE | 2020-02-01 06:38 | CA_ITS ---
APPROVED REPORT EXAM: Comprehensive 2D, Doppler, and color-flow Echocardiogram Water Truck Driver: Beverly Rondon CRT Ht: 5 ft 6 in Wt: 280lbs BSA: 2.31 BP: 119/66 mmHg Indications: Palpitations, Hyperlipidemia, Hypertension/HDD, smoker 2D Dimensions LVOT 1.94 cm (M/F) 1.5-2.5 M-Mode Dimensions RVDd 1.69 cm (0.9-2.6) LA Diam 3.30 cm (1.9-4.0) LVDd 4.91 cm (3.5-5.7) Ao Diam 3.24 cm (2.0-3.7) LVDs 2.66 cm (3.5-5.7) IVSd 1.53 cm (0.6-1.1) PWd 0.88 cm (0.6-1.1) EF (Teich) 77.10% FS 45.80% EDV (Teich) 113.40 mL ESV (Teich) 26.00 mL LV Diastology E Decel Time 237.00 (160-240 msec) E/A Ratio 1.85 MED E' 9.30 (< 7 cm/sec) E'/MED E' Ratio 11.84 (>14) LAT E' 14.40 (<10 cm/sec) E/LAT E' Ratio 7.65 (>14) Aortic Valve AO Peak GR. 11.00 mmHg Mitral Valve MV A Velocity 59.00 (40-130 cm/s) E/A Ratio 1.85 MV Decel. Time 237.00 (160-240 ms) Pulmonary Valve PV Peak Velocity 31.00 (50-150 cm/s) Tricuspid Valve TR P. Velocity 253.00 cm/s RAP Estimate 10.00 mmHg RVSP 35.60 mmHg Left Ventricle Left atrium is normal size, left ventricle is normal size, there is no concentric left ventricular hypertrophy, visually estimated ejection fraction 55% with no regional wall motion abnormality, diastolic parameters are within normal range. Right Ventricle Right atrium and right ventricle are normal size and contractility. Aortic Valve Aortic valve is grossly normal, there is no aortic stenosis or aortic insufficiency. Mitral Valve Mitral valve is grossly normal, there is trace mitral regurgitation. Tricuspid Valve Tricuspid valve grossly normal, there is trace tricuspid regurgitation, tricuspid regurgitation jet velocity is inadequate for calculation of the right ventricular systolic pressure. Pulmonic Valve Pulmonic valve is poorly visualized. Great Vessels Aortic root is normal size. Inferior vena cava is normal size with normal inspiratory collapse. Pericardium No significant pericardial effusion noted Conclusion 1. Normal left ventricular size, preserved left ventricular systolic function, visually estimated ejection fraction 55% with no regional wall motion abnormality, diastolic parameters are within normal range. 2. Trace mitral and tricuspid regurgitation. 3. No significant pericardial effusion noted. Electronically signed by : Heath Rice, 02/01/2020 16:21:01
== END ==
PROVIDERS: PCP Emergency Medicine; Visit Provider Physician Assistant
DX: E66.01 Morbid (severe) obesity due to excess calories (principal); E78.5 Hyperlipidemia, unspecified; F17.200 Nicotine dependence, unspecified, uncomplicated; R00.1 Bradycardia, unspecified; R00.2 Palpitations; R07.89 Other chest pain; R56.9 Unspecified convulsions; Z85.41 Personal history of malignant neoplasm of cervix uteri
CPT/HCPCS: 78452; 93017; 93306; A9502; J2785

== ENCOUNTER → 2020-02-02 14:37 | Outpatient (CLI) | payer MEDICARE, SELFPAY ==
--- NOTE | 2020-02-02 14:38 | MR_ITS ---
PROCEDURE: MR HEAD/BRAIN WO/W CON CLINICAL INDICATION: seizures COMPARISON: CT CT HEAD/BRAIN WO CON from 01/03/2020 TECHNIQUE: Routine multiplanar multi echo sequences are performed without gadolinium enhancement. FINDINGS: No midline shift, mass effect, intracranial hemorrhage, or hydrocephalus. No evidence of acute infarction The cerebellopontine angles, cerebellum, and brainstem are unremarkable. There is normal saucedo-white matter differentiation with no abnormal white matter signal intensity evident. No enhancing lesions are apparent. The hippocampal gyri are unremarkable in the temporal horns are symmetric. The pituitary, optic chiasm, corpus callosum, and craniocervical junction have an unremarkable appearance. No mastoid effusion or sinus air-fluid level. IMPRESSION: Negative MRI of the brain without and with contrast. Dictated by: Deandre Machado MD 02/03/2020 13:08 Deandre Machado MD in [place] 02/03/2020 13:08
== END ==
LOC: RAD 14:37
PROVIDERS: PCP Emergency Medicine; Visit Provider Specialist
DX: G40.909 Epilepsy, unspecified, not intractable, without status epilepticus (principal)
CPT/HCPCS: 70553; A9576

== ENCOUNTER → 2020-02-05 14:05 | Outpatient (CLI) | payer MEDICARE, SELFPAY ==
[2020-02-05 16:31] LABS: Coronavirus 19 IgG Antibody Negative (Negative); Coronavirus 19 IgM Antibody Negative (Negative)
== END ==
PROVIDERS: Visit Provider Specialist
DX: Z01.818 Encounter for other preprocedural examination (principal); Z03.818 Encounter for observation for suspected exposure to other biological agents ruled out
CPT/HCPCS: 36415; 86328

== ENCOUNTER 2020-02-06 17:43 | Emergency (ER) | payer MEDICARE, SELFPAY ==
[2020-02-06 17:43] VITALS: BP 116/71; PULSE 70; RESP 16; TEMP 37.1; O2SAT 95; BMI 44.6
--- NOTE | 2020-02-06 17:45 | HMH.EDGENADL ---
ED Disposition Clinical Impression: Heme + stool Disposition: Home, Self-Care Condition on Discharge: Good Instructions: DI for Diarrhea and Traveler's Diarrhea -- Adult Additional Instructions: Take meds as prescribed. Follow a bland diet. Follow-up with your PCP. Immediate return if any recurrent bleeding, lightheadedness, weakness, abdominal pain, syncope, other new concerning symptoms. Prescriptions: Omeprazole [Omeprazole 40mg Capsule] 40 mg PO DAILY 14 Days #14 cap Transmission Status: Received by [facility][id number] Referrals: Santiago Huber MD [Primary Care Provider] - - Critical Care Critical Care Time: No Attestation: On , the high probability of a clinically significant, sudden or life threatening deterioration of the following system(s) required my full and direct attention, intervention and personal management. The time I documented below is in addition to time spent performing reported procedures but includes the following listed in this critical care notation. Medical Decision Making - Medical Records Medical records reviewed: Yes: I reviewed the patient's medical records. - Moses Inquiry Pt receiving controlled substance: No Vital Signs: 02/06/20 17:43 Temperature 98.8 F Temperature Source Oral Pulse Rate [Right Radial] 70 Respiratory Rate 16 Blood Pressure [Right Arm] 116/71 Blood Pressure Mean [Right Arm] 86 Blood Pressure Source [Right Arm] Automatic Cuff Blood Pressure Position [Right Arm] Sitting 02 Sat by Pulse Oximetry 95 Oxygen Delivery Method Room Air - Lab Data Lab Results 02/06/20 17:59: Stool Occult Blood Positive A 02/06/20 18:31: WBC 8.7, RBC 4.62, Hgb 14.4, Hct 42.3, MCV 91.6, MCH 31.1, MCHC 34.0, RDW 14.4, Plt Count 313, MPV 8.0, Neut % (Auto) 76.1, Lymph % (Auto) 18.7, [place] % (Auto) 3.0, Eos % (Auto) 1.9, Baso % (Auto) 0.3, Neut # (Auto) 6.6, Lymph # (Auto) 1.6, [place] # (Auto) 0.3, Eos # (Auto) 0.2, Baso # (Auto) 0.0 02/06/20 18:31: Sodium 140, Potassium 4.0, Chloride 107, Carbon Dioxide 25, Anion Gap 12.0, BUN 10, Creatinine 0.70, Estimated Creat Clear 106, Estimated GFR 96, Est GFR ( Amer) 116, Glucose 106 H, Calcium 9.0, Total Bilirubin 0.7, AST 47 H, ALT 17, Alkaline Phosphatase 92, Total Protein 7.1, Albumin 4.0, Globulin 3.1, Albumin/Globulin Ratio 1.3, Lipase 66 02/06/20 19:30: Urine HCG, Qual Negative Result diagrams: 02/06/20 18:31 02/06/20 18:31 Orders (Tests/Meds): ED MEDICATIONS Generic Name Dose Route Start Last Admin Trade Name Freq PRN Reason Stop Dose Admin Lactated Ringer's 1,000 mls @ 999 mls/hr 02/06/20 18:00 02/06/20 18:24 Lactated Ringer's 1000 Ml Bag IV 02/06/20 19:00 999 mls/hr .Q1H1M GEO Administration Discontinued Medications Generic Name Dose Route Start Last Admin Trade Name Freq PRN Reason Stop Dose Admin Ondansetron HCl 4 mg 02/06/20 17:52 02/06/20 18:24 Ondansetron 4mg/2ml Vial IV 02/06/20 17:53 4 mg ONCE ONE Administration ORDERS Category Date Time Status Urinalysis and Microscopic Stat Lab 02/06/20 19:30 Received Medical Decision Narrative: Patient presents to the emergency department with reported blood in her stool, lightheadedness, and nausea. Differential diagnosis does include upper GI bleed versus lower GI bleed. Rectal exam demonstrates no obvious anal fissures or hemorrhoids. At this time, patient is well-appearing. Zofran and fluid bolus given a lab work to be checked to ensure no hematologic disturbance such as anemia or any metabolic disturbance. Patient with benign abdominal exam so low suspicion for any acute surgical process. No advanced imaging will be obtained at this time but patient will be closely monitored to ensure no new symptoms develop during her emergency department stay. Urinalysis with test will also be obtained as cystitis and on the differential. Patient with improved symptoms after fluids and Zofran. No m
[2020-02-06 18:40] LABS: Basophils % 0.3 % (0.1-2.0); Eosinophils # 0.2 K/mm3 (0.0-0.4); Eosinophils % 1.9 % (0.1-12.0); Hematocrit 42.3 % (37.0-47.0); Hemoglobin 14.4 g/dL (12.2-16.2); Lymphocytes # 1.6 K/mm3 (0.7-4.5); Lymphocytes % 18.7 % (10-50); Mean Corpuscular Hemoglobin 31.1 pg (27.0-31.2); Mean Corpuscular Volume 91.6 fl (81-99); Monocytes # 0.3 K/mm3 (0.1-1.0); Neutrophils # 6.6 K/mm3 (1.8-7.8); Neutrophils % 76.1 % (37.0-80.0); Platelet Count 313 K/mm3 (142-424); Red Blood Count 4.62 M/mm3 (4.20-5.40); Red Cell Distribution Width 14.4 % (11.5-17.5); White Blood Count 8.7 K/mm3 (4.8-10.8)
[2020-02-06 18:47] LABS: Occult Blood,Stool Positive (Negative)
[2020-02-06 18:50] LABS: Chloride 107 mmol/L (98-107); Sodium 140 mmol/L (136-145)
[2020-02-06 18:52] LABS: Blood Urea Nitrogen 10 mg/dl (7-17); Creatinine Clearance Estimated 106 mL/min (50-200); Estimated Glomerular Filt Rate 96 ml/min (>60); GFR (African American) 116 ML/MIN (>60)
[2020-02-06 18:53] LABS: Alanine Aminotransferase 17 U/L (12-78); Albumin/Globulin Ratio 1.3 (1.1-1.8); Alkaline Phosphatase 92 U/L (38-126); Aspartate Amino Transferase 47 U/L (14-36); Bilirubin,Total 0.7 mg/dl (0.2-1.3); Carbon Dioxide 25 mmol/L (22.0-30.0); Globulin 3.1 g/dL (1.3-3.2); Glucose 106 mg/dl (74-100); Lipase 66 U/L (23-300); Total Protein,Serum 7.1 g/dl (6.3-8.2)
[2020-02-06 19:39] LABS: Microscopic, Urine URINE MICROSCOPIC (MICROSCOPIC)
[2020-02-06 19:41] LABS: Appearance,Urine SL CLOUDY (Clear); Blood, Urine Negative (Negative); Color,Urine DK YELLOW (Yellow); Glucose,Urine (UA) Negative (Negative); Ketones,Urine Negative (Negative); Leukocyte Esterase,Urine Negative (Negative); Nitrate,Urine Negative (Negative); Protein,Urine Negative (Negative); Specific Gravity, Urine 1.025 (1.005-1.030); Urobilinogen,Urine 0.2 EU/dl (0.2)
[2020-02-06 19:55] LABS: Urine Pregnancy, HCG Qual. Negative (Negative)
[2020-02-06 20:09] VITALS: BP 121/68; PULSE 71; RESP 16; TEMP 37; O2SAT 96
[2020-02-06 20:43] LABS: Bilirubin,Urine Negative (Negative)
[2020-02-06 20:47] LABS: Bacteria,Urine Trace /lpf; WBC,Urine Occasional #/hpf (0-3)
== END 2020-02-06 20:14 | disposition home or self-care (01) ==
PROVIDERS: Emergency Provider Emergency Medicine; PCP Emergency Medicine
DX: R19.5 Other fecal abnormalities (principal); R42 Dizziness and giddiness; R11.0 Nausea; F41.8 Other specified anxiety disorders; E78.5 Hyperlipidemia, unspecified; I10 Essential (primary) hypertension; Z88.0 Allergy status to penicillin; F17.210 Nicotine dependence, cigarettes, uncomplicated; Z79.899 Other long term (current) drug therapy
CPT/HCPCS: 80053; 81001; 81025; 82272; 83690; 85025; 95810; 96365; 96375; 99283; G0328; J2405

== ENCOUNTER → 2020-02-06 20:18 | Outpatient (CLI) | payer MEDICARE, SELFPAY | PROVIDERS: PCP Emergency Medicine; Visit Provider Specialist | DX: G47.33 Obstructive sleep apnea (adult) (pediatric) (principal) | CPT/HCPCS: 95810 ==

== ENCOUNTER 2022-10-03 15:28 | Emergency (ER) | payer MEDICARE, SELFPAY ==
[2022-10-03] VITALS (7 sets, daily range): BP systolic 126–148; BP diastolic 73–87; PULSE 59–69; RESP 15–19; TEMP 36.6–36.7; O2SAT 95–98; BMI 47.2
--- NOTE | 2022-10-03 15:32 | ECG_ITS ---
APPROVED REPORT Exam: Resting ECG HR:59 bpm ECG Measurements Heart Rate 59 AXES FL 142 P 72 QRSd 85 QRS 71 QT 447 T 60 QTc 446 Conclusion SINUS BRADYCARDIA POSSIBLE RIGHT ATRIAL ENLARGEMENT [0.25mV P-WAVE] BORDERLINE ECG UNCONFIRMED REPORT Electronically signed by : Shay Morris MD 10/05/2022 14:05:42
--- NOTE | 2022-10-03 15:34 | HMH.EDGENADL ---
Discharge Plan Disposition Patient Disposition: Home, Self-Care Condition: Good Prescriptions Prescriptions: New oxycodone 5 mg capsule 5 mg PO Q6H PRN (Reason: pain) Qty: 7 0RF levetiracetam [Keppra] 1,000 mg tablet 1,000 mg PO BID 14 Days Qty: 28 0RF Discontinued levetiracetam 1,000 MG tablet 1,000 mg PO BID No Action folic acid 1 mg tablet 3 mg PO DAILY 30 Days Qty: 90 11RF phenytoin sodium extended 100 mg capsule 100 mg PO TID 30 Days Qty: 90 2RF sertraline 25 mg tablet 25 mg PO DAILY Qty: 30 2RF omeprazole 40 MG capsule,delayed release(DR/EC) 40 mg PO DAILY 14 Days Qty: 14 0RF benztropine 1 MG tablet 1 mg PO BID lovastatin 20 MG tablet 20 mg PO DAILY fluoxetine 20 MG capsule 20 mg PO DAILY aripiprazole 15 mg tablet 15 mg PO DAILY risperidone 1 mg tablet 1 mg PO DAILY Rx Instructions: 3 tablets Referrals Follow up/Referrals: Provider,Referral, MD [Primary Care Provider] - See instructions Activity Restrictions/Add. Instructions Additional Instructions/Restrictions: As discussed, it is likely that your seizure was due to old Keppra, I have prescribed a new prescription for Keppra, please follow-up with your primary care doctor and return with any new or worsening symptoms. Clinical Impressions Clinical Impression: Seizure Instructions Patient Instructions: DI for Seizure Disorder -- Adult, DI for Seizure (Not Epilepsy/Seizure Disorder), DI for Seizure Disorder -- Child Discharge ED Provider: Radhames Aguirre Adult [facility] General Chief complaint: Seizure Stated complaint: seizure Time Seen by Provider: 10/03/22 15:33 Related Data Home Medications Medication Instructions Recorded Confirmed benztropine 1 mg tablet 1 mg PO BID Tremors 01/22/20 01/29/20 fluoxetine 20 mg capsule 20 mg PO DAILY psychiatric 01/22/20 01/29/20 lovastatin 20 mg tablet 20 mg PO DAILY High cholesterol 01/22/20 01/29/20 aripiprazole 15 mg tablet 15 mg PO DAILY Epilepsy 01/29/20 01/29/20 risperidone 1 mg tablet 1 mg PO DAILY Psychiatric 01/29/20 01/29/20 Previous Rx's Medication Instructions Recorded phenytoin sodium extended 100 mg 100 mg PO TID SEIZURES 30 days #90 01/09/20 capsule caps sertraline 25 mg tablet 25 mg PO DAILY Anxiety #30 tabs 01/09/20 folic acid 1 mg tablet 3 mg PO DAILY 30 days #90 tabs 01/29/20 omeprazole 40 mg capsule,delayed 40 mg PO DAILY 14 days #14 caps 02/06/20 release levetiracetam 1,000 mg tablet 1,000 mg PO BID 2 weeks #28 tabs 10/03/22 (Keppra) oxycodone 5 mg capsule 5 mg PO Q6H PRN pain #7 caps 10/03/22 Allergies Allergy/AdvReac Type Severity Reaction Status Date / Time Penicillins [PENICILLINS] Allergy Intermediate I-HIVES Verified 01/29/20 09:15 ANESTHESIA Allergy Intermediate S-SWELLS-OR Uncoded 01/23/20 10:09 AL/THROAT PFSH [facility] Disclaimer: The information contained in this section may have been updated after the patient was seen, as this information can be updated by other users. Medical History (Updated 10/03/22 @ 19:33 by Libby Worrell RN) Bradycardia HLD (hyperlipidemia) Hx of cervical cancer Palpitations Seizures Tobacco dependence syndrome Social History Smoking Status: Current every day smoker tobacco type: cigarettes packs per day: 1 alcohol intake: never substance use type: denies use current occupational status: other Travel in the last 8 weeks: None household members: other housing: house ROS Obtained: Yes Systems reviewed as appropriate & no additional complaints except as documented Physical Exam General General appearance: alert and in no apparent distress Head Head exam: atraumatic and normocephalic Eye Eye exam: Present normal appearance Neck Neck exam: Present normal inspection Chest Chest inspection: Present normal inspection and symmetric chest wall rise Respiratory Respiratory exam: Present normal lung sounds bilatera
--- NOTE | 2022-10-03 15:42 | PC.NURSE ---
Warm blanket and pillow provided. Boyfriend at bedside.
--- NOTE | 2022-10-03 15:49 | CT_ITS ---
PROCEDURE INFORMATION: Exam: CT Cervical Spine Without Contrast Exam date and time: 10/03/2022 4:10 PM Age: 36 years old Clinical indication: Neck pain; Additional info: Midline neck pain after seizure TECHNIQUE: Imaging protocol: Computed tomography of the cervical spine without contrast. Radiation optimization: All CT scans at this facility use at least one of these dose optimization techniques: automated exposure control; mA and/or kV adjustment per patient size (includes targeted exams where dose is matched to clinical indication); or iterative reconstruction. REPORTING DATA: Count of CT and Cardiac NM exams in prior 12 months: This patient has received 0 known CTs and 0 known cardiac nuclear medicine studies in the 12 months prior to the current study. COMPARISON: CT CERVICAL SPINE WO CON 01/03/2020 9:57 PM FINDINGS: Bones/joints: No acute fracture. Mild degenerative disc and joint space changes at multiple levels of spine. Vertebral body heights preserved. Cortices intact. Normal bony density. Normal alignment. No significant disc bulge or herniation. No severe spinal canal stenosis. No significant neural foraminal narrowing. Lungs: Lung apices are normal. Soft tissues: Unremarkable. IMPRESSION: No acute findings. Degenerative changes.
[2022-10-03 15:57] LABS: Basophils % 0.1 % (0.1-2.0); Eosinophils # 0.2 K/mm3 (0.0-0.4); Eosinophils % 2.3 % (0.1-12.0); Hematocrit 43.2 % (37.0-47.0); Hemoglobin 14.2 g/dL (12.2-16.2); Lymphocytes # 1.9 K/mm3 (0.7-4.5); Lymphocytes % 21.6 % (10-50); Mean Corpuscular Hemoglobin 30.6 pg (27.0-31.2); Mean Corpuscular Volume 92.7 fl (81-99); Mean Platelet Volume 7.5 fl (7.4-10.4); Monocytes # 0.3 K/mm3 (0.1-1.0); Monocytes % 3.8 % (1.7-9.3); Neutrophils # 6.2 K/mm3 (1.8-7.8); Neutrophils % 72.2 % (37.0-80.0); Platelet Count 319 K/mm3 (142-424); Red Blood Count 4.66 M/mm3 (4.20-5.40); Red Cell Distribution Width 14.5 % (11.5-17.5); White Blood Count 8.6 K/mm3 (4.8-10.8)
[2022-10-03 16:01] LABS: Chloride 101 mmol/L (98-107); HCG Qualitative, Serum Negative (Negative); Potassium 3.9 mmoL/L (3.5-5.1); Sodium 140 mmol/L (136-145)
[2022-10-03 16:03] LABS: Blood Urea Nitrogen 12 mg/dl (7-17); Creatinine Clearance Estimated 81 mL/min (50-200); Estimated Glomerular Filt Rate 71 ml/min (>60); GFR (African American) 86 ML/MIN (>60)
[2022-10-03 16:04] LABS: Alanine Aminotransferase 22 U/L (12-78); Albumin Level 3.7 g/dl (3.5-5.0); Albumin/Globulin Ratio 1.1 (1.1-1.8); Alkaline Phosphatase 63 U/L (38-126); Anion Gap 10.9 mEq/L (5-15); Aspartate Amino Transferase 27 U/L (14-36); Bilirubin,Total 0.2 mg/dl (0.2-1.3); Calcium 9.3 mg/dl (8.4-10.2); Carbon Dioxide 32 mmol/L (22.0-30.0); Globulin 3.4 g/dL (1.3-3.2); Glucose 108 mg/dl (74-100); Magnesium 1.8 mg/dl (1.6-2.3); Phosphorous 2.9 mg/dl (2.5-4.5); Total Protein,Serum 7.1 g/dl (6.3-8.2)
--- NOTE | 2022-10-03 17:22 | PC.NURSE ---
Rounded on patient nothing needed at this time. Call gutierrez within reach of patient
--- NOTE | 2022-10-03 17:54 | PC.NURSE ---
Rounded on patient; nothing needed at this time patient states she is feeling better call light within reach of patient
--- NOTE | 2022-10-03 18:30 | PC.NURSE ---
Dietary tray given to patient, pt sitting up eating at this time. Family at BS
== END 2022-10-03 19:33 | disposition home or self-care (01) ==
PROVIDERS: Emergency Provider Emergency Medicine
DX: G40.909 Epilepsy, unspecified, not intractable, without status epilepticus (principal); E78.5 Hyperlipidemia, unspecified; F17.210 Nicotine dependence, cigarettes, uncomplicated
CPT/HCPCS: 72125; 80053; 83735; 84100; 84703; 85025; 93005; 93041; 96361; 96374; 99285; J1953

== ENCOUNTER 2022-10-05 11:41 | Emergency (ER) | payer MEDICARE, SELFPAY ==
[2022-10-05 11:49] VITALS: BP 121/70; PULSE 60; RESP 20; TEMP 36.6; O2SAT 98; BMI 47.7
--- NOTE | 2022-10-05 11:55 | HMH.EDGENADL ---
Discharge Plan Disposition Patient Disposition: Home, Self-Care Prescriptions Prescriptions: No Action folic acid 1 mg tablet 3 mg PO DAILY 30 Days Qty: 90 11RF phenytoin sodium extended 100 mg capsule 100 mg PO TID 30 Days Qty: 90 2RF sertraline 25 mg tablet 25 mg PO DAILY Qty: 30 2RF omeprazole 40 MG capsule,delayed release(DR/EC) 40 mg PO DAILY 14 Days Qty: 14 0RF oxycodone 5 mg capsule 5 mg PO Q6H PRN (Reason: pain) Qty: 7 0RF levetiracetam [Keppra] 1,000 mg tablet 1,000 mg PO BID 14 Days Qty: 28 0RF benztropine 1 MG tablet 1 mg PO BID lovastatin 20 MG tablet 20 mg PO DAILY fluoxetine 20 MG capsule 20 mg PO DAILY aripiprazole 15 mg tablet 15 mg PO DAILY risperidone 1 mg tablet 1 mg PO DAILY Rx Instructions: 3 tablets Referrals Follow up/Referrals: Provider,Referral, MD [Primary Care Provider] - See instructions Activity Restrictions/Add. Instructions Additional Instructions/Restrictions: Escalate your MiraLAX as indicated. You may take 2 capfuls twice a day since you are already taking 2 capfuls once a day. You may double the dose every 3 days until you are consistently having the bowel movement that is very soft on a daily basis. Make sure you drink plenty of fluids. Stay on that dose at least for several weeks but you may do this indefinitely. The blood in your stool was secondary to a very small tear in the mucosal lining of your rectum which should improve as your constipation improves. Follow-up with your primary care doctor as needed. Clinical Impressions Clinical Impression: Constipation, Acute anal fissure Instructions Patient Instructions: DI for Acute Abdominal Pain Discharge ED Provider: Kaleb Salas General Adult HPI General Chief complaint: Abdominal Pain Stated complaint: blood in stool, unable to use the restroom Time Seen by Provider: 10/05/22 11:46 Mode of Arrival: Ambulatory Source of Information: Patient Limitations: No Limitations Description of Symptoms (Recalled from ER Triage Doc. by RN): pt to ed c/o constipation x4-5 days. pt states today she noticed bright red blood in the commode. pt states she has a hx of hemorrhoids. pt denies any new diets/medications. History of Present Illness HPI narrative: 36-year-old female with a history of chronic intermittent constipation here today with complaints of constipation for the last several days. She states its been over 2 weeks and she has had a normal soft bowel movement. 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 She has been taking MiraLAX at home as well as senna and other [id number] laxatives without any improvement. She also states she had some blood in her stool and has been straining very hard to attempt to have bowel movements. She denies any significant abdominal pain fevers chills nausea vomiting or other concerns. Related Data Home Medications Medication Instructions Recorded Confirmed benztropine 1 mg tablet 1 mg PO BID Tremors 01/22/20 01/29/20 fluoxetine 20 mg capsule 20 mg PO DAILY psychiatric 01/22/20 01/29/20 lovastatin 20 mg tablet 20 mg PO DAILY High cholesterol 01/22/20 01/29/20 aripiprazole 15 mg tablet 15 mg PO DAILY Epilepsy 01/29/20 01/29/20 risperidone 1 mg tablet 1 mg PO DAILY Psychiatric 01/29/20 01/29/20 Previous Rx's Medication Instructions Recorded phenytoin sodium extended 100 mg 100 mg PO TID SEIZURES 30 days #90 01/09/20 capsule caps sertraline 25 mg tablet 25 mg PO DAILY Anxiety #30 tabs 01/09/20 folic acid 1 mg tablet 3 mg PO DAILY 30 days #90 tabs 01/29/20 omeprazole 40 mg capsule,delayed 40 mg PO DAILY 14 days #14 caps 02/06/20 release levetiracetam 1,000 mg tablet 1,000 mg PO BID 2 weeks #28 tabs 10/03/22 (Keppra) oxycodone 5 mg capsule 5 mg PO Q6H PRN pain #7 caps 10/03/22 Allergies Allergy/AdvReac Type Severity Reaction Status Beau
--- NOTE | 2022-10-05 12:48 | PC.NURSE ---
pt was given enema and decided to stay in the bathroom for a few minutes and had call light in hand to call for help or when complete.
--- NOTE | 2022-10-05 12:52 | PC.NURSE ---
Pt used call gutierrez in bathroom to alert staff she did have a large amount of stool. Small amount bright red blood in commode. notified.
[2022-10-05 13:07] VITALS: BP 120/70; PULSE 68; RESP 18; TEMP 36.7; O2SAT 99
== END 2022-10-05 13:08 | disposition home or self-care (01) ==
PROVIDERS: Emergency Provider Student in an Organized Health Care Education/Training Program
DX: K59.00 Constipation, unspecified (principal); K60.2 Anal fissure, unspecified; E78.5 Hyperlipidemia, unspecified; F17.210 Nicotine dependence, cigarettes, uncomplicated
CPT/HCPCS: 99282

== ENCOUNTER 2022-10-15 15:21 | Emergency (ER) | payer MEDICARE, SELFPAY ==
[2022-10-15] VITALS (7 sets, daily range): BP systolic 127–143; BP diastolic 62–80; PULSE 52–78; RESP 14–16; TEMP 36.6–36.9; O2SAT 97–100; BMI 45.1
--- NOTE | 2022-10-15 15:23 | ECG_ITS ---
APPROVED REPORT Exam: Resting ECG HR:61 bpm ECG Measurements Heart Rate 61 AXES RI 135 P 69 QRSd 90 QRS 51 QT 407 T 40 QTc 411 Conclusion SINUS RHYTHM NORMAL ECG UNCONFIRMED REPORT Electronically signed by : Shay Morris MD 10/15/2022 16:38:13
--- NOTE | 2022-10-15 15:33 | PC.NURSE ---
Pt was placed paper gown and personal items removed from her person and placed outside of pt room. Pt is in 1on1 observation for SI at this time.
--- NOTE | 2022-10-15 15:37 | PC.NURSE ---
Dr. Lopez at BS for pt eval
--- NOTE | 2022-10-15 15:45 | HMH.EDGENADL ---
Discharge Plan Disposition Patient Disposition: Home, Self-Care Chief Complaint: Psychiatric Symptoms Prescriptions Prescriptions: No Action folic acid 1 mg tablet 3 mg PO DAILY 30 Days Qty: 90 11RF phenytoin sodium extended 100 mg capsule 100 mg PO TID 30 Days Qty: 90 2RF sertraline 25 mg tablet 25 mg PO DAILY Qty: 30 2RF omeprazole 40 MG capsule,delayed release(DR/EC) 40 mg PO DAILY 14 Days Qty: 14 0RF oxycodone 5 mg capsule 5 mg PO Q6H PRN (Reason: pain) Qty: 7 0RF levetiracetam [Keppra] 1,000 mg tablet 1,000 mg PO BID 14 Days Qty: 28 0RF benztropine 1 MG tablet 1 mg PO BID lovastatin 20 MG tablet 20 mg PO DAILY fluoxetine 20 MG capsule 20 mg PO DAILY aripiprazole 15 mg tablet 15 mg PO DAILY risperidone 1 mg tablet 1 mg PO DAILY Rx Instructions: 3 tablets Referrals Follow up/Referrals: Ellie Mittal PA [Primary Care Provider] - See instructions Activity Restrictions/Add. Instructions Additional Instructions/Restrictions: At this time is felt you are safe to be discharged home. If new or worsening symptoms please do not hesitate to return the emergency department. Clinical Impressions Clinical Impression: Suicidal ideation Discharge ED Provider: Javier Lopez General Adult HPI General Chief complaint: Psychiatric Symptoms Stated complaint: SI Time Seen by Provider: 10/15/22 15:34 Mode of Arrival: EMS Source of Information: Patient Limitations: No Limitations Description of Symptoms (Recalled from ER Triage Doc. by RN): Pt brought in via EMS for SI. Pt denies SI at this time but reports she spoke with Behavioral health today about being out of her bipolar medication and told them she was going to kill herself. She denies having a plan at that time she just told them that . EMS reports PD was called by Behavioral health office to check on pt after she reported SI. History of Present Illness HPI narrative: Patient is a 36-year-old female with past medical history of bipolar disorder previously controlled on aripiprazole who presents to the emergency department for evaluation of suicidal ideation. History obtained by patient at bedside. A month ago she moved here from [place] has been unable to refill her medications. Patient has been taking aripiprazole for a year. Over recent days patient has had intrusive thoughts of harming herself, when asked if she has a plan she states I am just depressed and I am having thoughts of harming myself . Patient does not have a specific plan when asked. She is very concerned that she is off of her medication and presents here for continued evaluation. She denies homicidal ideation or audiovisual hallucinations. She does also have a past medical history of seizure disorder well-controlled on Keppra, autism. Related Data Home Medications Medication Instructions Recorded Confirmed benztropine 1 mg tablet 1 mg PO BID Tremors 01/22/20 01/29/20 fluoxetine 20 mg capsule 20 mg PO DAILY psychiatric 01/22/20 01/29/20 lovastatin 20 mg tablet 20 mg PO DAILY High cholesterol 01/22/20 01/29/20 aripiprazole 15 mg tablet 15 mg PO DAILY Epilepsy 01/29/20 01/29/20 risperidone 1 mg tablet 1 mg PO DAILY Psychiatric 01/29/20 01/29/20 Previous Rx's Medication Instructions Recorded phenytoin sodium extended 100 mg 100 mg PO TID SEIZURES 30 days #90 01/09/20 capsule caps sertraline 25 mg tablet 25 mg PO DAILY Anxiety #30 tabs 01/09/20 folic acid 1 mg tablet 3 mg PO DAILY 30 days #90 tabs 01/29/20 omeprazole 40 mg capsule,delayed 40 mg PO DAILY 14 days #14 caps 02/06/20 release levetiracetam 1,000 mg tablet 1,000 mg PO BID 2 weeks #28 tabs 10/03/22 (Keppra) oxycodone 5 mg capsule 5 mg PO Q6H PRN pain #7 caps 10/03/22 Allergies Allergy/AdvReac Type Severity Reaction Status Date / Time Penicillins [PENICILLINS] Allergy Intermediate I-HIVES Verified 01/29/20 09:15 ANESTHESIA Allergy Intermediate S
--- NOTE | 2022-10-15 15:47 | PC.NURSE ---
pt eating a ham sandwich at this time, and drinking a pepsi. okay's by ER Lab called to come draw patients labs; unsuccessful attempt x 1 from [facility].
--- NOTE | 2022-10-15 15:50 | PC.NURSE ---
Nirav at to draw labs
[2022-10-15 16:06] LABS: Amphetamine/Metha Screen,Urine Negative ng/ml (<1000); Barbiturates Screen,Urine Negative ng/ml (<200)
[2022-10-15 16:07] LABS: Cannabinoid Screen,Urine Negative ng/ml (<50)
[2022-10-15 16:08] LABS: Benzodiazepines Screen,Urine Negative ng/ml (<200); Cocaine Screen,Urine Negative ng/ml (<300)
[2022-10-15 16:10] LABS: Opiate Screen,Urine Negative ng/ml (<300); Phencyclidine Screen,Urine Negative ng/ml (<25)
[2022-10-15 16:17] LABS: Basophils % 0.3 % (0.1-2.0); Eosinophils # 0.1 K/mm3 (0.0-0.4); Eosinophils % 1.3 % (0.1-12.0); Hematocrit 42.8 % (37.0-47.0); Hemoglobin 13.9 g/dL (12.2-16.2); Lymphocytes % 18.2 % (10-50); Mean Corpuscular HGB Conc 32.3 g/dL (31.8-35.4); Mean Corpuscular Volume 92.9 fl (81-99); Mean Platelet Volume 8.4 fl (7.4-10.4); Monocytes # 0.4 K/mm3 (0.1-1.0); Monocytes % 3.7 % (1.7-9.3); Neutrophils # 8.2 K/mm3 (1.8-7.8); Neutrophils % 76.6 % (37.0-80.0); Platelet Count 310 K/mm3 (142-424); Red Blood Count 4.61 M/mm3 (4.20-5.40); Red Cell Distribution Width 14.7 % (11.5-17.5); White Blood Count 10.7 K/mm3 (4.8-10.8)
[2022-10-15 16:27] LABS: Chloride 103 mmol/L (98-107)
[2022-10-15 16:28] LABS: Potassium 4.5 mmoL/L (3.5-5.1); Sodium 138 mmol/L (136-145)
[2022-10-15 16:30] LABS: Alanine Aminotransferase 22 U/L (12-78); Albumin Level 3.8 g/dl (3.5-5.0); Albumin/Globulin Ratio 1.1 (1.1-1.8); Alkaline Phosphatase 75 U/L (38-126); Anion Gap 10.5 mEq/L (5-15); Aspartate Amino Transferase 35 U/L (14-36); Bilirubin,Total 0.3 mg/dl (0.2-1.3); Blood Urea Nitrogen 9 mg/dl (7-17); Carbon Dioxide 29 mmol/L (22.0-30.0); Creatinine Clearance Estimated 81 mL/min (50-200); Estimated Glomerular Filt Rate 71 ml/min (>60); GFR (African American) 86 ML/MIN (>60); Globulin 3.5 g/dL (1.3-3.2); Total Protein,Serum 7.3 g/dl (6.3-8.2)
[2022-10-15 16:31] LABS: Glucose 91 mg/dl (74-100)
[2022-10-15 16:34] LABS: Methadone Screen,Urine Negative ng/ml (<300)
[2022-10-15 17:02] LABS: Thyroid Stimulating Hormone 1.06 uIU/mL (0.465-4.68)
--- NOTE | 2022-10-15 17:10 | PC.NURSE ---
calling [facility]
--- NOTE | 2022-10-15 18:11 | PC.NURSE ---
called [facility] to get and update on when we receive call back
[2022-10-15 19:09] LABS: Urine Pregnancy, HCG Qual. Negative (Negative)
--- NOTE | 2022-10-15 19:10 | PC.NURSE ---
Dr. Lopez gave verbal order for Ativan 1mg PO 1x dose now.
--- NOTE | 2022-10-15 19:13 | PC.NURSE ---
paperwork faxed to [facility]
--- NOTE | 2022-10-15 19:39 | PC.NURSE ---
pt escorted to bathroom and remained in bathroom with patient. Patient states she 'just want to go her moms
--- NOTE | 2022-10-15 20:27 | PC.NURSE ---
call placed to [facility]; was advised per ale that he will remind sondra olvera to call us back.
--- NOTE | 2022-10-15 21:07 | PC.NURSE ---
patient is walking around in room to stretch my legs
--- NOTE | 2022-10-15 21:10 | PC.NURSE ---
Called [facility], spoke to [facility] about getting a room for the pt. Faxed over all pt information to [facility], at [phone]. States they will review it and call us back. CR
--- NOTE | 2022-10-15 21:23 | PC.NURSE ---
[facility] called back and requested to have a phone consultation. states she will call back to perform
--- NOTE | 2022-10-15 21:36 | PC.NURSE ---
return call received from [facility] for assessment
--- NOTE | 2022-10-15 22:03 | PC.NURSE ---
spoke with intake nurse at [facility], stated that she does not feel like pt. is appropriate for their facility, phone given to Mickey Pringle RN
--- NOTE | 2022-10-15 22:10 | PC.NURSE ---
Paul called back and stated that Leti Li APRN is stating that the pt is a level 0 threat and they will not accept her and that she needs to follow up with her Physician and therapist at [facility]. Advised RN and Dr Lopez of what they said. CR
--- NOTE | 2022-10-15 22:29 | PC.NURSE ---
Pt. discharged, spoke with her mother and she is coming to pick her and and take her to a friends house for the night. Pt. sitting in lobby waiting on ride
== END 2022-10-15 22:31 | disposition home or self-care (01) ==
PROVIDERS: Emergency Provider Emergency Medicine; PCP Physician Assistant
DX: R45.851 Suicidal ideations (principal); F31.9 Bipolar disorder, unspecified; E78.5 Hyperlipidemia, unspecified; Z85.41 Personal history of malignant neoplasm of cervix uteri; F17.210 Nicotine dependence, cigarettes, uncomplicated
CPT/HCPCS: 80053; 80305; 81025; 84443; 85025; 93005; 99285

== ENCOUNTER 2022-10-20 11:31 | Emergency (ER) | payer MEDICARE, SELFPAY ==
[2022-10-20] VITALS (13 sets, daily range): BP systolic 105–186; BP diastolic 45–105; PULSE 53–66; RESP 18–19; TEMP 37.3; O2SAT 96–98; BMI 45.1
--- NOTE | 2022-10-20 12:00 | PC.NURSE ---
Started 1:1 pt in bed laying down
--- NOTE | 2022-10-20 12:15 | PC.NURSE ---
pt is eating a lunch tray
--- NOTE | 2022-10-20 12:30 | PC.NURSE ---
Valentino from lab at drawing labs
--- NOTE | 2022-10-20 12:45 | PC.NURSE ---
pt watching tv
--- NOTE | 2022-10-20 13:00 | PC.NURSE ---
Assumed patient care; Waldemar sitting 1 on 1 with patient
--- NOTE | 2022-10-20 13:15 | PC.NURSE ---
pt watching tv
--- NOTE | 2022-10-20 13:30 | PC.NURSE ---
pt watching tv
--- NOTE | 2022-10-20 13:45 | PC.NURSE ---
Pt laying in bed still watching tv
--- NOTE | 2022-10-20 14:00 | PC.NURSE ---
pt is in out of napping
--- NOTE | 2022-10-20 14:15 | PC.NURSE ---
pt now is awake watching tv
--- NOTE | 2022-10-20 14:30 | PC.NURSE ---
pt is watching tv, covid swab was givem to melissa tate after i swabbed pt
--- NOTE | 2022-10-20 14:32 | PC.NURSE ---
Lab called for an update on results for blood and urine
--- NOTE | 2022-10-20 14:35 | PC.NURSE ---
Covid swab sent
--- NOTE | 2022-10-20 14:43 | ECG_ITS ---
APPROVED REPORT Exam: Resting ECG HR:52 bpm ECG Measurements Heart Rate 52 AXES OR 139 P 77 QRSd 90 QRS 66 QT 424 T 45 QTc 405 Conclusion SINUS BRADYCARDIA BORDERLINE ECG UNCONFIRMED REPORT Electronically signed by : Shay Morris MD 10/22/2022 18:46:04
--- NOTE | 2022-10-20 14:43 | PC.NURSE ---
Waldemar obtained EKG
--- NOTE | 2022-10-20 14:45 | PC.NURSE ---
pt watching tv
--- NOTE | 2022-10-20 14:46 | PC.NURSE ---
labs coming back
--- NOTE | 2022-10-20 14:55 | PC.NURSE ---
Attempted to call intake at [facility]); will call back
--- NOTE | 2022-10-20 15:00 | PC.NURSE ---
pt is on phone with [facility] for assessment
--- NOTE | 2022-10-20 15:03 | PC.NURSE ---
Mavis @ intake from [facility] on the phone with patient for assessment.
--- NOTE | 2022-10-20 15:15 | PC.NURSE ---
[facility] said they were speaking with there and would call back and let us know if pt was accepted or not, pt is resting in bed
--- NOTE | 2022-10-20 15:24 | PC.NURSE ---
Spoke with Tristen from poison control
--- NOTE | 2022-10-20 15:30 | PC.NURSE ---
Pt is resting in bed
--- NOTE | 2022-10-20 15:45 | PC.NURSE ---
pt is napping at this time
--- NOTE | 2022-10-20 16:00 | PC.NURSE ---
pt is still asleep at this time
--- NOTE | 2022-10-20 16:03 | PC.NURSE ---
pt resting bed watching tv, at bs speaking with pt
[2022-10-20 16:11] LABS: Appearance,Urine CLEAR (Clear); Blood, Urine Negative (Negative); Color,Urine YELLOW (Yellow); Glucose,Urine (UA) Negative (Negative); Ketones,Urine TRACE (Negative); Leukocyte Esterase,Urine Negative (Negative); Microscopic, Urine URINE MICROSCOPIC (MICROSCOPIC); Nitrate,Urine Negative (Negative); PH,Urine 6.5 (5.0-8.5); Protein,Urine Negative (Negative); Specific Gravity, Urine >= 1.030 (1.005-1.030); Urobilinogen,Urine 0.2 EU/dl (0.2)
[2022-10-20 16:12] LABS: Alanine Aminotransferase 19 U/L (12-78); Albumin/Globulin Ratio 1.1 (1.1-1.8); Alkaline Phosphatase 62 U/L (38-126); Amphetamine/Metha Screen,Urine Negative ng/ml (<1000); Aspartate Amino Transferase 22 U/L (14-36); Barbiturates Screen,Urine Negative ng/ml (<200); Benzodiazepines Screen,Urine Negative ng/ml (<200); Blood Urea Nitrogen 13 mg/dl (7-17); Calcium 8.9 mg/dl (8.4-10.2); Cannabinoid Screen,Urine Negative ng/ml (<50); Carbon Dioxide 28 mmol/L (22.0-30.0); Chloride 105 mmol/L (98-107); Cocaine Screen,Urine Negative ng/ml (<300); Creatinine Clearance Estimated 81 mL/min (50-200); Estimated Glomerular Filt Rate 71 ml/min (>60); Free T4 (Free Thyroxine) 0.68 ng/dl (0.78-2.19); GFR (African American) 86 ML/MIN (>60); Globulin 3.5 g/dL (1.3-3.2); Glucose 84 mg/dl (74-100); Methadone Screen,Urine Negative ng/ml (<300); Opiate Screen,Urine Negative ng/ml (<300); Phencyclidine Screen,Urine Negative ng/ml (<25); Sodium 141 mmol/L (136-145); Thyroid Stimulating Hormone 0.72 uIU/mL (0.465-4.68); Total Protein,Serum 7.5 g/dl (6.3-8.2)
[2022-10-20 16:15] LABS: Acetaminophen < 10 ug/ml (10-30); Salicylate < 1.0 mg/dL (2.0-20.0)
[2022-10-20 16:16] LABS: Bilirubin,Total < 0.1 mg/dl (0.2-1.3)
--- NOTE | 2022-10-20 17:00 | PC.NURSE ---
called out to let alesha to let her would like a snack and a cup of coffee she is calling dietary for a tray
--- NOTE | 2022-10-20 17:03 | PC.NURSE ---
pt has been accepted to [facility]
--- NOTE | 2022-10-20 17:15 | PC.NURSE ---
Called dispatch for pt transfer to [facility], they advised it would be probably an hour and a half before they could get here.
[2022-10-20 17:29] LABS: Bilirubin,Urine 1+ (Negative)
[2022-10-20 17:31] LABS: Hematocrit 42.6 % (37.0-47.0); Hemoglobin 13.8 g/dL (12.2-16.2); Mean Corpuscular HGB Conc 32.5 g/dL (31.8-35.4); Mean Corpuscular Hemoglobin 30.2 pg (27.0-31.2); Mean Corpuscular Volume 92.9 fl (81-99); Red Blood Count 4.58 M/mm3 (4.20-5.40)
[2022-10-20 17:32] LABS: Basophils % 0.7 % (0.1-2.0); Eosinophils # 0.1 K/mm3 (0.0-0.4); Eosinophils % 1.1 % (0.1-12.0); Lymphocytes # 2.2 K/mm3 (0.7-4.5); Lymphocytes % 24.1 % (10-50); Mean Platelet Volume 8.3 fl (7.4-10.4); Monocytes # 0.4 K/mm3 (0.1-1.0); Monocytes % 4.2 % (1.7-9.3); Neutrophils # 6.3 K/mm3 (1.8-7.8); Neutrophils % 69.7 % (37.0-80.0); Platelet Count 308 K/mm3 (142-424); Red Cell Distribution Width 14.7 % (11.5-17.5)
[2022-10-20 17:33] LABS: Coronavirus 19, PCR Not Detected (NotDetected); HCG Qualitative, Serum Negative (Negative); Influenza A, PCR Not Detected (NotDetected); Influenza B, PCR Not Detected (NotDetected)
--- NOTE | 2022-10-20 18:09 | HMH.EDGENADL ---
Discharge Plan Disposition Patient Disposition: Xfer Short-Term Hosp Prescriptions Prescriptions: No Action folic acid 1 mg tablet 3 mg PO DAILY 30 Days Qty: 90 11RF phenytoin sodium extended 100 mg capsule 100 mg PO TID 30 Days Qty: 90 2RF sertraline 25 mg tablet 25 mg PO DAILY Qty: 30 2RF omeprazole 40 MG capsule,delayed release(DR/EC) 40 mg PO DAILY 14 Days Qty: 14 0RF oxycodone 5 mg capsule 5 mg PO Q6H PRN (Reason: pain) Qty: 7 0RF levetiracetam [Keppra] 1,000 mg tablet 1,000 mg PO BID 14 Days Qty: 28 0RF benztropine 1 MG tablet 1 mg PO BID lovastatin 20 MG tablet 20 mg PO DAILY fluoxetine 20 MG capsule 20 mg PO DAILY aripiprazole 15 mg tablet 15 mg PO DAILY risperidone 1 mg tablet 1 mg PO DAILY Rx Instructions: 3 tablets Referrals Follow up/Referrals: Provider,Referral, MD [Primary Care Provider] - See instructions Clinical Impressions Clinical Impression: Attempted suicide Discharge ED Provider: Radhames Aguirre General Adult HPI <Radhames Aguirre MD - Last Filed: 10/20/22 18:38> General Chief complaint: Psychiatric Symptoms Stated complaint: overdose Time Seen by Provider: 10/20/22 11:41 Mode of Arrival: EMS Source of Information: Patient and EMS Limitations: No Limitations Description of Symptoms (Recalled from ER Triage Doc. by RN): 36 yo F presents to ED for overdose/suicide attempt. pt reports that she took 30 of her prescribed gabapentin (300mg) at approx 1 am 10/20/22. pt reports that she is upset with her mother for keeping her children away from her. pt reports that she has had a similar attemp approx 2 years ago. pt states i cant live a life without my kids. she is just being mean to me . pt reports that she is willing to go to [facility] for help. History of Present Illness HPI narrative: Patient presents for evaluation of suicidal ideation, with overdose of approximately 30 tabs of 300 mg gabapentin which occurred at 1 AM this morning. Patient denies any symptoms related to ingestion at this time. She denies any loss of consciousness. No other coingestions. Patient describes a recent stressor of having her mother keep her children away from her. Patient has required inpatient hospitalization for behavioral health reasons in the past. No chest pain or palpitations or loss of consciousness or fevers or chills. Patient denies recreational drug use. Patient has full recollection of the events which occurred yesterday evening. No other self-injurious behavior. Denies auditory or visual hallucinations at this time. Of note, history and physical were obtained initially when electronic medical record was not functioning so I was unable to independently review patient's medical record. Patient reports medications of fluoxetine, Keppra, omeprazole, risperidone, sertraline, gabapentin. Additional history is limited as patient has limited recollection of any diagnoses she carries or why she is on her medications. Related Data Home Medications Medication Instructions Recorded Confirmed benztropine 1 mg tablet 1 mg PO BID Tremors 01/22/20 01/29/20 fluoxetine 20 mg capsule 20 mg PO DAILY psychiatric 01/22/20 01/29/20 lovastatin 20 mg tablet 20 mg PO DAILY High cholesterol 01/22/20 01/29/20 aripiprazole 15 mg tablet 15 mg PO DAILY Epilepsy 01/29/20 01/29/20 risperidone 1 mg tablet 1 mg PO DAILY Psychiatric 01/29/20 01/29/20 Previous Rx's Medication Instructions Recorded phenytoin sodium extended 100 mg 100 mg PO TID SEIZURES 30 days #90 01/09/20 capsule caps sertraline 25 mg tablet 25 mg PO DAILY Anxiety #30 tabs 01/09/20 folic acid 1 mg tablet 3 mg PO DAILY 30 days #90 tabs 01/29/20 omeprazole 40 mg capsule,delayed 40 mg PO DAILY 14 days #14 caps 02/06/20 release levetiracetam 1,000 mg tablet 1,000 mg PO BID 2 weeks #28 tabs 10/03/22 (Keppra) oxycodone 5 mg capsule 5 mg PO Q6H PRN pain #7 caps 10/03/22 Allergies Aller
--- NOTE | 2022-10-20 18:41 | PC.NURSE ---
called dispatch for update on transport, they advised it would be after 7.
--- NOTE | 2022-10-20 19:26 | PC.NURSE ---
DISPATCH HAS BEEN CALLED AGAIN FOR AN UPDATE; WILL CALL BACK WHEN THEY GET AHOLD OF AN OFFICER
--- NOTE | 2022-10-20 19:39 | PC.NURSE ---
EMS CALLED FOR PATIENT TRANSFER TO [facility]; PD DOES NOT TRANSFER [facility]
--- NOTE | 2022-10-20 21:18 | PC.NURSE ---
Jahaira Mistry on the phone with krista giving report
== END 2022-10-20 20:29 | disposition short-term general hospital (02) ==
PROVIDERS: Emergency Provider Emergency Medicine
DX: T42.6X2A Poisoning by other antiepileptic and sedative-hypnotic drugs, intentional self-harm, initial encounter (principal); R45.851 Suicidal ideations; E78.5 Hyperlipidemia, unspecified; F17.210 Nicotine dependence, cigarettes, uncomplicated; Z85.41 Personal history of malignant neoplasm of cervix uteri; R00.1 Bradycardia, unspecified
CPT/HCPCS: 80053; 80305; 80329; 81001; 83735; 84100; 84439; 84443; 84703; 85025; 87636; 93005; 96360; 99285

== ENCOUNTER 2022-10-24 00:40 | Emergency (ER) | payer MEDICARE, OTHER, SELFPAY ==
[2022-10-24 00:41] VITALS: BP 125/78; PULSE 67; RESP 18; TEMP 37.2; O2SAT 100; BMI 45.1
--- NOTE | 2022-10-24 00:43 | ECG_ITS ---
APPROVED REPORT Exam: Resting ECG HR:61 bpm ECG Measurements Heart Rate 61 AXES [place] 139 P 70 QRSd 86 QRS 63 QT 412 T 57 QTc 416 Conclusion SINUS RHYTHM LOW QRS VOLTAGE IN PRECORDIAL LEADS [QRS DEFLECTION < 1.0 mV IN CHEST LEADS] BORDERLINE ECG UNCONFIRMED REPORT Electronically signed by : Shay Morris MD 10/26/2022 15:54:56
--- NOTE | 2022-10-24 00:50 | XR_ITS ---
PROCEDURE INFORMATION: Exam: XR Chest Exam date and time: 10/24/2022 12:56 AM Age: 36 years old Clinical indication: Pain; Chest pressure; Additional info: Cp TECHNIQUE: Imaging protocol: Radiologic exam of the chest. Views: 1 view. COMPARISON: CR XR CHEST 2V 01/22/2020 12:08 AM FINDINGS: Lungs: Unremarkable. No consolidation. Pleural spaces: Unremarkable. No pleural effusion. No pneumothorax. Heart/Mediastinum: Unremarkable. No cardiomegaly. Vasculature: Unremarkable. Bones/joints: Unremarkable. IMPRESSION: No acute findings.
--- NOTE | 2022-10-24 00:52 | HMH.EDGENADL ---
Discharge Plan Disposition Patient Disposition: Home, Self-Care Condition: Good Prescriptions Prescriptions: No Action folic acid 1 mg tablet 3 mg PO DAILY 30 Days Qty: 90 11RF phenytoin sodium extended 100 mg capsule 100 mg PO TID 30 Days Qty: 90 2RF sertraline 25 mg tablet 25 mg PO DAILY Qty: 30 2RF omeprazole 40 MG capsule,delayed release(DR/EC) 40 mg PO DAILY 14 Days Qty: 14 0RF oxycodone 5 mg capsule 5 mg PO Q6H PRN (Reason: pain) Qty: 7 0RF levetiracetam [Keppra] 1,000 mg tablet 1,000 mg PO BID 14 Days Qty: 28 0RF benztropine 1 MG tablet 1 mg PO BID lovastatin 20 MG tablet 20 mg PO DAILY fluoxetine 20 MG capsule 20 mg PO DAILY aripiprazole 15 mg tablet 15 mg PO DAILY risperidone 1 mg tablet 1 mg PO DAILY Rx Instructions: 3 tablets Referrals Follow up/Referrals: Provider,Referral, MD [Primary Care Provider] - See instructions Activity Restrictions/Add. Instructions Additional Instructions/Restrictions: Please follow-up with your primary care provider. Please return to the emergency department if you develop any new or worsening symptoms or become concerned for your health. Clinical Impressions Clinical Impression: Chest pain Qualifiers: Chest pain type: unspecified Qualified Code(s): R07.9 - Chest pain, unspecified Discharge ED Provider: Hakeem Garza Adult HPI General Chief complaint: Chest Pain Stated complaint: chest pains Time Seen by Provider: 10/24/22 00:42 History of Present Illness HPI narrative: 36-year-old female reported history of COPD, epilepsy, obesity, anxiety, recent hospitalization for intentional gabapentin overdose presents with central chest pain for the last 2 days. Pain worse with deep inspiration. No prior history of PE, DVT, no recent surgery or immobilization, not on OCPs. Patient reports nonproductive cough, denies shortness of breath. Pain is not exertional. Related Data Home Medications Medication Instructions Recorded Confirmed benztropine 1 mg tablet 1 mg PO BID Tremors 01/22/20 01/29/20 fluoxetine 20 mg capsule 20 mg PO DAILY psychiatric 01/22/20 01/29/20 lovastatin 20 mg tablet 20 mg PO DAILY High cholesterol 01/22/20 01/29/20 aripiprazole 15 mg tablet 15 mg PO DAILY Epilepsy 01/29/20 01/29/20 risperidone 1 mg tablet 1 mg PO DAILY Psychiatric 01/29/20 01/29/20 Previous Rx's Medication Instructions Recorded phenytoin sodium extended 100 mg 100 mg PO TID SEIZURES 30 days #90 01/09/20 capsule caps sertraline 25 mg tablet 25 mg PO DAILY Anxiety #30 tabs 01/09/20 folic acid 1 mg tablet 3 mg PO DAILY 30 days #90 tabs 01/29/20 omeprazole 40 mg capsule,delayed 40 mg PO DAILY 14 days #14 caps 02/06/20 release levetiracetam 1,000 mg tablet 1,000 mg PO BID 2 weeks #28 tabs 10/03/22 (Keppra) oxycodone 5 mg capsule 5 mg PO Q6H PRN pain #7 caps 10/03/22 Allergies Allergy/AdvReac Type Severity Reaction Status Date / Time Penicillins [PENICILLINS] Allergy Intermediate I-HIVES Verified 10/24/22 01:06 ANESTHESIA Allergy Intermediate S-SWELLS-OR Uncoded 01/23/20 10:09 AL/THROAT PFS PFS Disclaimer: The information contained in this section may have been updated after the patient was seen, as this information can be updated by other users. Medical History (Updated 10/24/22 @ 01:55 by Hakeem Garza MD) Bradycardia HLD (hyperlipidemia) Hx of cervical cancer Palpitations Seizures Tobacco dependence syndrome Social History Smoking Status: Current every day smoker tobacco type: cigarettes packs per day: 1 alcohol intake: never substance use type: denies use current occupational status: other Travel in the last 8 weeks: None household members: other housing: house ROS Obtained: Yes All systems reviewed & no additional complaints except as documented Physical Exam General General appearance: elisabet
[2022-10-24 01:10] LABS: Basophils # 0.1 K/mm3 (0-0.2); Basophils % 0.4 % (0.1-2.0); Eosinophils # 0.3 K/mm3 (0.0-0.4); Eosinophils % 2.4 % (0.1-12.0); Hematocrit 47.8 % (37.0-47.0); Hemoglobin 15.1 g/dL (12.2-16.2); Lymphocytes # 3.7 K/mm3 (0.7-4.5); Lymphocytes % 30.1 % (10-50); Mean Corpuscular HGB Conc 31.6 g/dL (31.8-35.4); Mean Corpuscular Hemoglobin 29.4 pg (27.0-31.2); Mean Corpuscular Volume 93.1 fl (81-99); Mean Platelet Volume 9.4 fl (7.4-10.4); Monocytes # 0.4 K/mm3 (0.1-1.0); Monocytes % 3.1 % (1.7-9.3); Neutrophils # 7.9 K/mm3 (1.8-7.8); Neutrophils % 64.1 % (37.0-80.0); Platelet Count 326 K/mm3 (142-424); Red Blood Count 5.13 M/mm3 (4.20-5.40); Red Cell Distribution Width 14.8 % (11.5-17.5); White Blood Count 12.3 K/mm3 (4.8-10.8)
[2022-10-24 01:14] LABS: Chloride 106 mmol/L (98-107); Sodium 140 mmol/L (136-145)
[2022-10-24 01:17] LABS: Alanine Aminotransferase 21 U/L (12-78); Albumin Level 4.5 g/dl (3.5-5.0); Albumin/Globulin Ratio 1.3 (1.1-1.8); Alkaline Phosphatase 44 U/L (38-126); Aspartate Amino Transferase 45 U/L (14-36); Bilirubin,Total 0.8 mg/dl (0.2-1.3); Blood Urea Nitrogen 17 mg/dl (7-17); Carbon Dioxide 24 mmol/L (22.0-30.0); Creatinine Clearance Estimated 91 mL/min (50-200); Estimated Glomerular Filt Rate 81 ml/min (>60); GFR (African American) 98 ML/MIN (>60); Globulin 3.6 g/dL (1.3-3.2); Total Protein,Serum 8.1 g/dl (6.3-8.2)
[2022-10-24 01:18] LABS: Glucose 86 mg/dl (74-100)
[2022-10-24 01:19] LABS: Anion Gap 14.8 mEq/L (5-15); Potassium 4.8 mmoL/L (3.5-5.1)
[2022-10-24 01:26] VITALS: PULSE 62
[2022-10-24 01:35] LABS: Troponin I < 0.01 ng/ml (0.00-0.034)
[2022-10-24 01:56] VITALS: BP 125/68; PULSE 61; RESP 19; TEMP 36.9; O2SAT 100
== END 2022-10-24 02:06 | disposition home or self-care (01) ==
PROVIDERS: Emergency Provider Emergency Medicine
DX: R07.9 Chest pain, unspecified (principal); J44.9 Chronic obstructive pulmonary disease, unspecified; G40.909 Epilepsy, unspecified, not intractable, without status epilepticus; E66.9 Obesity, unspecified; F41.9 Anxiety disorder, unspecified; E78.5 Hyperlipidemia, unspecified; F17.210 Nicotine dependence, cigarettes, uncomplicated
CPT/HCPCS: 71045; 80053; 84484; 85025; 93005; 99285

== ENCOUNTER 2022-10-31 18:25 | Emergency (ER) | payer MEDICARE, OTHER, SELFPAY ==
--- NOTE | 2022-10-31 18:24 | ECG_ITS ---
APPROVED REPORT Exam: Resting ECG HR:60 bpm ECG Measurements Heart Rate 60 AXES SD 142 P 64 QRSd 86 QRS 52 QT 446 T 43 QTc 448 Conclusion SINUS RHYTHM NORMAL ECG UNCONFIRMED REPORT Electronically signed by : Shay Morris MD 11/02/2022 07:11:44
[2022-10-31 18:25] VITALS: BP 118/63; PULSE 65; RESP 18; TEMP 36.8; O2SAT 96; BMI 47.9
[2022-10-31 18:30] VITALS: BP 132/77; PULSE 64; O2SAT 97
--- NOTE | 2022-10-31 18:35 | PC.NURSE ---
seizure pads placed on patient bedrails
[2022-10-31 19:02] VITALS: BP 98/55; PULSE 62; RESP 18; O2SAT 97
--- NOTE | 2022-10-31 19:06 | HMH.EDGENADL ---
Discharge Plan Disposition Patient Disposition: Home, Self-Care Prescriptions Prescriptions: New ondansetron 4 mg tablet,disintegrating 4 mg PO Q6H PRN (Reason: nausea and vomiting) 5 Days Qty: 20 0RF No Action folic acid 1 mg tablet 3 mg PO DAILY 30 Days Qty: 90 11RF phenytoin sodium extended 100 mg capsule 100 mg PO TID 30 Days Qty: 90 2RF sertraline 25 mg tablet 25 mg PO DAILY Qty: 30 2RF omeprazole 40 MG capsule,delayed release(DR/EC) 40 mg PO DAILY 14 Days Qty: 14 0RF oxycodone 5 mg capsule 5 mg PO Q6H PRN (Reason: pain) Qty: 7 0RF levetiracetam [Keppra] 1,000 mg tablet 1,000 mg PO BID 14 Days Qty: 28 0RF benztropine 1 MG tablet 1 mg PO BID lovastatin 20 MG tablet 20 mg PO DAILY fluoxetine 20 MG capsule 20 mg PO DAILY aripiprazole 15 mg tablet 15 mg PO DAILY risperidone 1 mg tablet 1 mg PO DAILY Rx Instructions: 3 tablets Referrals Follow up/Referrals: Provider,Referral, MD [Primary Care Provider] - See instructions Activity Restrictions/Add. Instructions Additional Instructions/Restrictions: Please take your seizure medications as previously instructed and return with any other concerns. Clinical Impressions Clinical Impression: Breakthrough seizure, Noncompliance with medication regimen, Nausea & vomiting Instructions Patient Instructions: DI for Seizure Disorder -- Adult, DI for Seizure (Not Epilepsy/Seizure Disorder), DI for Seizure Disorder -- Child Discharge ED Provider: Kaleb Salas General Adult [facility] General Chief complaint: Seizure Stated complaint: Possible Seizure Time Seen by Provider: 10/31/22 18:59 Mode of Arrival: EMS Source of Information: Patient and EMS Limitations: No Limitations Description of Symptoms (Recalled from ER Triage Doc. by RN): Ems states they were called out for seizure but pt has been ALOx4 upon their arrival found her down in the bathroom, pt complains of low back pain, pt states she doesnt remeber hitting head only remebers throwing up. pt has been seen here recently in the ER. pt answering all triage questions appropriatly. per ems fbs is 111 History of Present Illness HPI narrative: Patient is a 36-year-old female with a history of epilepsy who is on 1000 mg of Keppra twice daily historically typically has seizures every few months presents today with a seizure. She states she had a few days of nausea vomiting preceding this no diarrhea no abdominal pain no fevers or chills or any other concerns. She states that she left her seizure medication at her mother's house and has had at least 3 doses where she has missed her medication. She currently has no complaints. Specifically she has no headache or other neurologic complaints. Related Data Home Medications Medication Instructions Recorded Confirmed benztropine 1 mg tablet 1 mg PO BID Tremors 01/22/20 01/29/20 fluoxetine 20 mg capsule 20 mg PO DAILY psychiatric 01/22/20 01/29/20 lovastatin 20 mg tablet 20 mg PO DAILY High cholesterol 01/22/20 01/29/20 aripiprazole 15 mg tablet 15 mg PO DAILY Epilepsy 01/29/20 01/29/20 risperidone 1 mg tablet 1 mg PO DAILY Psychiatric 01/29/20 01/29/20 Previous Rx's Medication Instructions Recorded phenytoin sodium extended 100 mg 100 mg PO TID SEIZURES 30 days #90 01/09/20 capsule caps sertraline 25 mg tablet 25 mg PO DAILY Anxiety #30 tabs 01/09/20 folic acid 1 mg tablet 3 mg PO DAILY 30 days #90 tabs 01/29/20 omeprazole 40 mg capsule,delayed 40 mg PO DAILY 14 days #14 caps 02/06/20 release levetiracetam 1,000 mg tablet 1,000 mg PO BID 2 weeks #28 tabs 10/03/22 (Keppra) oxycodone 5 mg capsule 5 mg PO Q6H PRN pain #7 caps 10/03/22 ondansetron 4 mg disintegrating 4 mg PO Q6H PRN nausea and 10/31/22 tablet vomiting 5 days #20 tabs Allergies Allergy/AdvReac Type Severity Reaction Status Date / Time Penicillins [PENICILLINS] Allergy Intermediate I-HIVES Verified 10/24/22 01:06 ANESTHESI
[2022-10-31 19:13] LABS: Basophils % 0.3 % (0.1-2.0); Eosinophils # 0.2 K/mm3 (0.0-0.4); Eosinophils % 1.6 % (0.1-12.0); Hematocrit 39.9 % (37.0-47.0); Hemoglobin 12.7 g/dL (12.2-16.2); Lymphocytes # 2.1 K/mm3 (0.7-4.5); Lymphocytes % 21.1 % (10-50); Mean Corpuscular HGB Conc 31.9 g/dL (31.8-35.4); Mean Corpuscular Hemoglobin 29.1 pg (27.0-31.2); Mean Corpuscular Volume 91.4 fl (81-99); Mean Platelet Volume 9.1 fl (7.4-10.4); Monocytes # 0.4 K/mm3 (0.1-1.0); Monocytes % 4.1 % (1.7-9.3); Neutrophils # 7.2 K/mm3 (1.8-7.8); Neutrophils % 72.9 % (37.0-80.0); Platelet Count 328 K/mm3 (142-424); Red Blood Count 4.37 M/mm3 (4.20-5.40); Red Cell Distribution Width 14.7 % (11.5-17.5); White Blood Count 9.9 K/mm3 (4.8-10.8)
[2022-10-31 19:14] LABS: Chloride 107 mmol/L (98-107); Sodium 142 mmol/L (136-145)
[2022-10-31 19:15] LABS: Potassium 3.9 mmoL/L (3.5-5.1)
[2022-10-31 19:16] LABS: HCG Qualitative, Serum Negative (Negative)
[2022-10-31 19:17] LABS: Alanine Aminotransferase 22 U/L (12-78); Albumin Level 3.5 g/dl (3.5-5.0); Alkaline Phosphatase 61 U/L (38-126); Anion Gap 10.9 mEq/L (5-15); Aspartate Amino Transferase 30 U/L (14-36); Bilirubin,Total 0.2 mg/dl (0.2-1.3); Blood Urea Nitrogen 13 mg/dl (7-17); Carbon Dioxide 28 mmol/L (22.0-30.0); Creatinine Clearance Estimated 91 mL/min (50-200); Estimated Glomerular Filt Rate 81 ml/min (>60); GFR (African American) 98 ML/MIN (>60)
[2022-10-31 19:18] LABS: Albumin/Globulin Ratio 1.2 (1.1-1.8); Calcium 9.2 mg/dl (8.4-10.2); Globulin 2.9 g/dL (1.3-3.2); Glucose 104 mg/dl (74-100); Total Protein,Serum 6.4 g/dl (6.3-8.2)
[2022-10-31 19:31] VITALS: BP 115/52; PULSE 62; RESP 18; O2SAT 97
[2022-10-31 20:01] VITALS: BP 119/69; PULSE 59; RESP 20; O2SAT 97
[2022-10-31 20:03] VITALS: BP 119/61; PULSE 57; RESP 16; TEMP 36.8; O2SAT 97
--- NOTE | 2022-10-31 20:05 | PC.NURSE ---
rounded on pt. gave her crackers, peanut butter and water to PO challenge per
== END 2022-10-31 20:26 | disposition home or self-care (01) ==
PROVIDERS: Emergency Provider Student in an Organized Health Care Education/Training Program
DX: G40.919 Epilepsy, unspecified, intractable, without status epilepticus (principal); R11.2 Nausea with vomiting, unspecified; E78.5 Hyperlipidemia, unspecified; F17.210 Nicotine dependence, cigarettes, uncomplicated
CPT/HCPCS: 80053; 84703; 85025; 93005; 96361; 96374; 96375; 99284; J1953; J2405

== ENCOUNTER 2022-11-06 18:25 | Emergency (ER) | payer MEDICARE, OTHER, SELFPAY ==
[2022-11-06 18:26] VITALS: BP 132/67; PULSE 65; RESP 18; TEMP 36.6; O2SAT 96; BMI 46.1
[2022-11-06 19:00] VITALS: BP 133/67; O2SAT 92
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
[2022-11-06 19:31] VITALS: BP 138/57; PULSE 67; O2SAT 95
--- NOTE | 2022-11-06 19:44 | PC.NURSE ---
After patient was triaged ER MD went into patient room and patient denied suicidal thoughts and told the doctor she was only here for a headache. ER armature repairer also went into patient room and patient denied suicidal thoughts or complaints to alligator trapper as well. Triage nurse went back in to patient room to re evaluate and patient denied suicial thoughts again. See ER MD notes for further info. ER MD deemed patient not a safety risk.
[2022-11-06 20:35] VITALS: BP 125/70; PULSE 72; RESP 18; TEMP 37.1; O2SAT 99
[2022-11-06 20:36] VITALS: BP 132/82; PULSE 87; RESP 18; TEMP 36.8; O2SAT 100
== END 2022-11-06 20:05 | disposition home or self-care (01) ==
PROVIDERS: Emergency Provider Emergency Medicine
DX: G43.909 Migraine, unspecified, not intractable, without status migrainosus (principal); I10 Essential (primary) hypertension; E78.5 Hyperlipidemia, unspecified; F17.210 Nicotine dependence, cigarettes, uncomplicated
CPT/HCPCS: 96361; 96372; 96374; 99284